=== PATIENT | male | born 1955 | race Caucasian/White ===

== ENCOUNTER → 2018-12-20 08:12 | Outpatient (CLI) | payer MEDICARE, OTHER, SELFPAY ==
--- NOTE | 2018-12-20 | DI.ECHO.S_ITS ---
[facility]---------+ [facility] +---------+ : : [address] : [place] : : : : [id number] : : : : Phone: [phone]+ Echocardiogram Report + + :Name: DESMOND SARAVIA Study Date: 12/20/2018 Height: 72 in : :[facility] Weight: 223 lb : : Gender: Male BSA: 2.2 m2 : :: 1955 Age: 63 yrs BP: 122/80 mmHg: :Reason For Study: Atrial Fibrillation : : Performed By: Zenia Carbajal : :Referring: AKANKSHA BENAVIDEZ : + + Interpretation Summary The patient was in atrial fibrillation with heart rates between 79-112 bpm during the exam. Left ventricular size is at the upper limits of normal. The ejection fraction is estimated to be 30-35%. There is moderate to severe global hypokinesis of the left ventricle. The right ventricle is grossly normal size. Right ventricular systolic function is mildly reduced. There is mild mitral regurgitation. Procedure: A two-dimensional transthoracic echocardiogram with color flow and Doppler was performed. The study quality was technically adequate. There is no prior echocardiogram noted for this patient. The patient was in atrial fibrillation with heart rates between 79-112 bpm during the exam. Left Ventricle: There is normal left ventricular wall thickness. Left ventricular size is at the upper limits of normal. There is no thrombus. Beat- to-beat variability due to atrial fibrillation. The ejection fraction is estimated to be 30-35%. There is moderate to severe global hypokinesis of the left ventricle. There is a mild dyssynchronous contraction pattern, consistent with a conduction abnormality. Diastolic function could not be accurately assessed due to atrial fibrillation. Right Ventricle: The right ventricle is grossly normal size. Right ventricular systolic function is mildly reduced. Atria: The left atrium is mildly dilated. Borderline right atrial enlargement. The interatrial septum is intact with no evidence for an atrial septal defect. Mitral Valve: There is mild mitral annular calcification. There is mild mitral regurgitation. Aortic Valve: The aortic valve is trileaflet. The aortic valve opens well. There is no aortic valve stenosis. No aortic regurgitation is present. Tricuspid Valve: The tricuspid valve is normal. There is trace tricuspid regurgitation. The right ventricular systolic pressure is estimated to be at least 22 mmHg based on an estimated right atrial pressure of 3 mm Hg. Pulmonic Valve: The pulmonic valve is not well visualized. There is a trace or physiologic amount of pulmonic regurgitation. Great Vessels: The aortic root is normal size. The ascending aorta is normal in size. The IVC is of normal diameter and collapses greater than 50% with a sniff. This suggests a low right atrial pressure of 3 mm Hg. Pericardium/ Pleura There is an anterior echo-free space consistent with a fat pad. There is no pericardial effusion. There is no pleural effusion. MMode/2D Measurements & Calculations LVIDd: 5.7 cm LVOT diam: 2.2 cm LVIDs: 4.2 cm Ao root diam: 3.4 cm FS: 25.8 % asc Aorta Diam: 3.4 cm IVSd: 0.93 cm LVPWd: 0.94 cm LV hargrove. diameter/BSA (cm/m^2): 2.6 LV sys. diameter/BSA (cm/m^2): 1.9 LA A2 area: 20.5 cm2 RA long axis: 5.1 cm LA A4 area: 20.5 cm2 RA area: 18.5 cm2 LA length (vol): 5.6 cm RA vol: 57.3 ml LA vol: 63.7 ml RA : 25.7 ml/m2 LA vol index: 28.5 ml/m2 TAPSE: 1.7 cm Doppler Measurements & Calculations Ao V2 max: 114.2 cm/sec LVOT Max Zain: 93.1 cm/sec Ao V2 mean: 81.5 cm/sec LV V1 max P.5 mmHg Ao max P.3 mmHg LV V1 VTI: 14.8 cm Ao mean P.9 mmHg CAITLIN(I,D): 2.8 cm2 Ao V2 VTI: 19.9 cm CAITLIN(V,D): 3.1 cm2 sev ratio: 0.74 CAITLIN indexed to BSA (cm^2/m^2): 1.3 TR max zain: 218.1 cm/sec SV(LVOT): 56.7 ml TR max P.0 mmHg PA V2 max: 71.5 cm/sec PA V2 mean: 51.0 cm/sec PA mean P.1 mmHg PA pr(Accel): 40.7 mmHg Reading Physician:POLLO
== END ==
PROVIDERS: PCP Internal Medicine; Visit Provider Physician Assistant
DX: I34.0 Nonrheumatic mitral (valve) insufficiency (principal); I48.91 Unspecified atrial fibrillation
CPT/HCPCS: 93306

== ENCOUNTER → 2018-12-28 10:07 | Outpatient (CLI) | payer MEDICARE, OTHER, SELFPAY ==
--- NOTE | 2018-12-28 | DI.RAD.S_ITS ---
PROCEDURE: XR KNEE LT 1TO2V INDICATIONS: KNEE PAIN TECHNIQUE: 2 views of the knee were acquired. COMPARISON: [facility], CR, XR KNEE STANDING BI, 12/28/2018, 10:23. [facility], CR, XR KNEE RT 1TO2V, 12/28/2018, 10:25. FINDINGS: Bones: Moderate tricompartment osteoarthritis in left knee is seen more prominent in the medial femorotibial compartment. No fractures or dislocations. No suspicious bony lesions. Soft tissues: Small joint effusion is noted. No suspicious soft tissue calcifications. IMPRESSION: Moderate left knee tricompartmental osteoarthritis more prominent in the medial femoral tibial compartment. Small joint effusion. Dictated by: Bijan Craig M.D. on 12/28/2018 at 11:24 Approved by: Bijan Craig M.D. on 12/28/2018 at 11:25
--- NOTE | 2018-12-28 | DI.RAD.S_ITS ---
PROCEDURE: XR KNEE RT 1TO2V INDICATIONS: KNEE PAIN TECHNIQUE: 2 views of the knee were acquired. COMPARISON: [facility], CR, XR KNEE STANDING BI, 12/28/2018, 10:23. FINDINGS: Bones: Moderate tricompartment osteoarthritis right knee is seen more prominent in lateral femoral tibial compartment. Soft tissues: No joint effusion. No suspicious soft tissue calcifications. IMPRESSION: Moderate tricompartment osteoarthritis and right knee more prominent in lateral femoral tibial compartment. Dictated by: Bijan Craig M.D. on 12/28/2018 at 11:17 Approved by: Bijan Craig M.D. on 12/28/2018 at 11:18
--- NOTE | 2018-12-28 | DI.RAD.S_ITS ---
PROCEDURE: XR KNEE STANDING BI INDICATIONS: KNEE PAIN TECHNIQUE: AP standing view of bilateral knees COMPARISON: [facility], , KNEE 3V RIGHT, 09/23/2007, 15:55. FINDINGS: Bones: AP standing view shows mild to moderate bilateral tricompartmental osteoarthritis more prominent in the medial femorotibial compartment of left knee and lateral femoral tibial compartment of right knee. Soft tissues: No knee joint effusions. No suspicious soft tissue calcification. IMPRESSION: Significant right lateral femoral tibial compartment and left medial femoral-tibial compartment joint space narrowing on AP standing view. Dictated by: Bijan Craig M.D. on 12/28/2018 at 11:16 Approved by: Bijan Craig M.D. on 12/28/2018 at 11:17
== END ==
PROVIDERS: PCP Internal Medicine; Visit Provider Internal Medicine
DX: M22.2X2 Patellofemoral disorders, left knee (principal); M25.562 Pain in left knee; M25.561 Pain in right knee; M17.0 Bilateral primary osteoarthritis of knee; M25.462 Effusion, left knee
CPT/HCPCS: 73560; 73565

== ENCOUNTER → 2019-01-03 10:59 | Outpatient (CLI) | payer MEDICARE, OTHER, SELFPAY ==
[2019-01-03 12:10] LABS: Hemoglobin A1C% w Est Avg Glu 5.3 % (4.0-6.0)
== END ==
PROVIDERS: PCP Internal Medicine; Visit Provider Internal Medicine
DX: R73.9 Hyperglycemia, unspecified (principal)
CPT/HCPCS: 36415; 83036

== ENCOUNTER → 2019-01-04 15:01 | Outpatient (CLI) | payer MEDICARE, OTHER, SELFPAY ==
--- NOTE | 2019-01-04 | DI.US.S_ITS ---
PROCEDURE: US PERIPH VENOUS LOW EXTREM LT INDICATIONS: LEFT LEG PAIN AND SWELLING TECHNIQUE: Real-time imaging, as well as color and pulse Doppler interrogation, were performed of the lower extremity deep veins from the inguinal ligament to the popliteal fossa. COMPARISON: None. FINDINGS: The deep veins are normally compressible, and free of intraluminal thrombus. Color and pulse Doppler demonstrate normal phasic intraluminal flow. There is normal augmentation response to distal compression maneuver. There is a large complex Barrera's cyst measuring 8.7 x 3.7 x 4.9 cm. IMPRESSION: 1. No evidence DVT in the left lower extremity. 2. Large Barrera cyst. Dictated by: Ronni Brody M.D. on 01/04/2019 at 16:52 Approved by: Ronni Brody M.D. on 01/04/2019 at 16:54
== END ==
PROVIDERS: PCP Internal Medicine; Visit Provider Internal Medicine
DX: M79.662 Pain in left lower leg (principal); M79.89 Other specified soft tissue disorders; M71.22 Synovial cyst of popliteal space [Baker], left knee
CPT/HCPCS: 93971

== ENCOUNTER → 2019-01-23 10:22 | Outpatient (CLI) | payer MEDICARE, OTHER, SELFPAY ==
[2019-01-23 11:05] LABS: Add Manual Diff / Slide Review NO; Basophils Absolute Auto 0 /uL (0-100); Basophils Percent Auto 0.6 % (0-2); Eosinophils Absolute Auto 100 /uL (0-450); Eosinophils Percent Auto 1.2 % (2-4); Hematocrit 47.3 % (41-53); Hemoglobin 16.1 g/dL (13.5-17.5); Lymphocytes Absolute Auto 1100 /uL (1100-4500); Lymphocytes Percent Auto 13.9 % (25-40); Mean Corpuscular HGB Conc 33.9 % (30-36); Mean Corpuscular Hemoglobin 32.3 PG (26-34); Mean Corpuscular Volume 95.3 fL (80-100); Monocytes Absolute Auto 600 /uL (0-900); Monocytes Percent Auto 7.4 % (3-14); Neutrophils Absolute Auto 6200 /uL (1500-7000); Neutrophils Percent Auto 76.9 % (50-75); Platelet Count 245 X10^3/uL (150-400); Red Blood Cell Count 4.97 X10^6/uL (4.5-5.9); Red Cell Distribution Width 13.7 % (11.6-14.8); White Blood Cell Count 8.1 X10^3/uL (4.5-11.0)
[2019-01-23 11:24] LABS: Blood Urea Nitrogen 21 mg/dL (9-20); Calcium 9.4 mg/dL (8.4-10.2); Carbon Dioxide 32 mmol/L (22-32); Chloride 98 mmol/L (98-107); Estimated Glomerular Filt Rate > 60.0 mL/min (>60); Glucose 116 mg/dL (80-110); HEMOLYSIS < 15 (0-50); Potassium 4.3 mmol/L (3.4-5.1); Sodium 139 mmol/L (137-145)
== END ==
PROVIDERS: PCP Internal Medicine; Visit Provider Internal Medicine Cardiovascular Disease
DX: I10 Essential (primary) hypertension (principal)
CPT/HCPCS: 36415; 80048; 85025

== ENCOUNTER → 2019-02-09 10:28 | Outpatient (CLI) | payer MEDICARE, OTHER, SELFPAY ==
[2019-02-09 12:17] LABS: Blood Urea Nitrogen 22 mg/dL (9-20); Calcium 9.4 mg/dL (8.4-10.2); Carbon Dioxide 31 mmol/L (22-32); Chloride 98 mmol/L (98-107); Estimated Glomerular Filt Rate > 60.0 mL/min (>60); Glucose 104 mg/dL (80-110); HEMOLYSIS < 15 (0-50); Sodium 139 mmol/L (137-145)
== END ==
PROVIDERS: PCP Internal Medicine; Visit Provider Internal Medicine Cardiovascular Disease
DX: I50.22 Chronic systolic (congestive) heart failure (principal)
CPT/HCPCS: 36415; 80048

== ENCOUNTER → 2019-05-01 08:52 | Outpatient (CLI) | payer MEDICARE, OTHER, SELFPAY ==
--- NOTE | 2019-05-01 | DI.ECHO.S_ITS ---
[facility] +---------+ [facility] +---------+ : : [address] [place] : : : : [id number] : : : : Phone: [phone] : : [phone]+ Echocardiogram Report + + :Name: DESMOND SARAVIA Study Date: 05/01/2019 Height: 72 in : :[facility] Weight: 224 lb : : Gender: Male BSA: 2.2 m2 : :: 1955 Age: 63 yrs BP: 118/90 mmHg: :Reason For Study: Atrial fibrillation : : Performed By: Sanam Cantu : :Referring: MARGE PEARL : + + Interpretation Summary 1) Normal left ventricular size with moderately reduced systolic function (EF 35-40%). 2) Mildly enlarged right ventricle with mildly reduced function. 3) No significant valvular abnormalities. 4) The right ventricular systolic pressure is estimated to be at least 42 mmHg based on an estimated right atrial pressure of 15 mm Hg. 5) Compared to the Echo done 12/20/2018, no significant changes are present. Procedure: A two-dimensional transthoracic echocardiogram with color flow and Doppler was performed. The study quality was technically adequate. Comparison is made with the echocardiogram of 12-20-18. The patient was in atrial fibrillation with heart rates between 79-94 bpm during the exam. Left Ventricle: The left ventricle is normal in size. Left ventricular wall thickness is at the upper limits of normal. The ejection fraction is estimated to be 35-40%. Right Ventricle: The right ventricle is mildly dilated. Right ventricular systolic function is mildly reduced. Atria: The left atrium is mildly dilated. Right atrial size is normal. The interatrial septum is intact with no evidence for an atrial septal defect. Mitral Valve: The mitral valve is grossly normal. There is mild mitral regurgitation. Aortic Valve: The aortic valve is trileaflet. The aortic valve opens well. There is no aortic valve stenosis. No aortic regurgitation is present. Tricuspid Valve: The tricuspid valve is normal in structure and function. There is a trace or physiologic amount of tricuspid regurgitation. The right ventricular systolic pressure is estimated to be at least 42 mmHg based on an estimated right atrial pressure of 15 mm Hg. Pulmonic Valve: The pulmonic valve is not well visualized. There is no pulmonic valvular regurgitation. Great Vessels: The aortic root is normal size. The dimensions of the ascending aorta are normal. The aortic arch could not be visualized. The IVC is dilated (diameter is greater than 2.1 cm) and it collapses less than 50% with a sniff. This suggests a high right atrial pressure of 15 mm Hg. Pericardium/ Pleura There is no pericardial effusion. There is no pleural effusion. MMode/2D Measurements & Calculations LVIDd: 5.4 cm LVOT diam: 3.4 cm LVIDs: 4.3 cm Ao root diam: 3.4 cm FS: 20.4 % Aortic Jxn: 3.0 cm IVSd: 1.1 cm asc Aorta Diam: 3.1 cm LVPWd: 1.1 cm LV hargrove. diameter/BSA (cm/m^2): 2.4 LV sys. diameter/BSA (cm/m^2): 1.9 LA dimension: 4.8 cm RA long axis: 4.8 cm LA A2 area: 23.2 cm2 RA area: 17.1 cm2 LA A4 area: 22.6 cm2 RA vol: 52.1 ml LA length (vol): 5.4 cm RA : 23.3 ml/m2 LA vol: 83.0 ml IVC diam: 2.3 cm LA vol index: 37.1 ml/m2 RVDd major: 5.0 cm RVD1 (basal): 4.3 cm RVD2 (mid): 3.4 cm Doppler Measurements & Calculations MV P1/2t: 59.0 msec TR max timothy: 259.3 cm/sec TR max P.9 mmHg PA V2 max: 68.8 cm/sec PA V2 mean: 54.7 cm/sec PA mean P.3 mmHg PA Accel Time: 0.13 sec MV V2 mean: 50.0 cm/sec MV P1/2t max timothy: 95.6 cm/sec MV mean P.4 mmHg MVA(P1/2t): 3.7 cm2 MV V2 VTI: 14.2 cm Reading Physician:01:17 PM
[2019-05-01 11:25] LABS: Blood Urea Nitrogen 17 mg/dL (9-20); Calcium 9.5 mg/dL (8.4-10.2); Carbon Dioxide 31 mmol/L (22-32); Chloride 103 mmol/L (98-107); Estimated Glomerular Filt Rate > 60.0 mL/min (>60); Glucose 105 mg/dL (80-110); HEMOLYSIS < 15 (0-50); Potassium 5.1 mmol/L (3.4-5.1); Sodium 142 mmol/L (137-145)
== END ==
PROVIDERS: PCP Internal Medicine; Visit Provider Internal Medicine Cardiovascular Disease
DX: I34.0 Nonrheumatic mitral (valve) insufficiency (principal); I48.1 Persistent atrial fibrillation; I42.9 Cardiomyopathy, unspecified
CPT/HCPCS: 36415; 80048; 93306

== ENCOUNTER → 2019-09-26 13:33 | Outpatient (CLI) | payer MEDICARE, OTHER, SELFPAY ==
--- NOTE | 2019-09-26 | DI.ECHO.S_ITS ---
[facility] +---------+ [facility] +---------+ : : [address] : [place] : : : : [id number] : : : : Phone: [phone] : [phone] +[phone]+ Echocardiogram Report + + :Name: DESMOND SARAVIA Study Date: 09/26/2019 Height: 72 in : :[facility] Weight: 224 lb : : Gender: Male BSA: 2.2 m2 : :: 1955 Age: 64 yrs BP: 118/88 mmHg: :Reason For Study: Chronic systolic heart failure : : Performed By: [facility] : :Referring: MARGE PEARL : + + Interpretation Summary 1) Normal left ventricular size with moderately reduced systolic function (EF 35-40%). There is significant beat to beat variation due to AF. 2) Mildly enlarged right ventricle with mildly reduced function. 3) No significant valvular abnormalities. 4) Atrial fibrillation with ventricular rates in the 90s-120s range present during the study. 5) Compared to the Echo done 05/01/2019,RVR is present with AF during the current study. Procedure: A two-dimensional transthoracic echocardiogram with color flow and Doppler was performed. The study quality was technically adequate. Prior echo performed on 05/01/19. Left Ventricle: The left ventricle is normal in size. There is normal left ventricular wall thickness. Left ventricular systolic function is moderately reduced. The ejection fraction is estimated to be 35-40%. Right Ventricle: The right ventricle is mildly dilated. The right ventricular systolic function is normal. Atria: The left atrium is mildly dilated. Right atrial size is normal. The interatrial septum is intact with no evidence for an atrial septal defect. Mitral Valve: The mitral valve leaflets appear mildly thickened, but open well. There is trace mitral regurgitation. Aortic Valve: The aortic valve is trileaflet. The aortic valve opens well. There is no aortic valve stenosis. No aortic regurgitation is present. Tricuspid Valve: The tricuspid valve is normal in structure and function. There is trace tricuspid regurgitation. Pulmonary artery pressures cannot be estimated because of the lack of a measurable TR jet velocity. Pulmonic Valve: The pulmonic valve is not well visualized. There is trace pulmonic regurgitation. Great Vessels: The aortic root is normal size. The ascending aorta could not be visualized. The pulmonary artery is normal size. The IVC is of normal diameter and collapses greater than 50% with a sniff. This suggests a low right atrial pressure of 3 mm Hg. Pericardium/ Pleura There is no pericardial effusion. There is no pleural effusion. MMode/2D Measurements & Calculations LVIDd: 5.5 cm LVOT diam: 2.0 cm LVIDs: 4.5 cm Ao root diam: 3.3 cm FS: 18.7 % EPSS: 1.9 cm IVSd: 1.1 cm LVPWd: 0.98 cm LV hargrove. diameter/BSA (cm/m^2): 2.5 LV sys. diameter/BSA (cm/m^2): 2.0 LA A2 area: 21.2 cm2 RA long axis: 5.0 cm LA A4 area: 24.2 cm2 RA area: 15.4 cm2 LA length (vol): 5.5 cm RA vol: 40.4 ml LA vol: 79.8 ml RA : 18.1 ml/m2 LA vol index: 35.7 ml/m2 TAPSE: 2.3 cm Doppler Measurements & Calculations MV E max zain: 89.8 cm/sec Med Peak E' Zain: 6.4 cm/sec E/E' med: 14.0 Lat Peak E' Zain: 6.5 cm/sec E/E' lat: 13.8 E/e' average: 13.9 Reading Physician:06:01 PM
[2019-09-26 15:53] LABS: Blood Urea Nitrogen 24 mg/dL (9-20); Calcium 9.7 mg/dL (8.4-10.2); Carbon Dioxide 28 mmol/L (22-32); Chloride 103 mmol/L (98-107); Estimated Glomerular Filt Rate > 60.0 mL/min (>60); Glucose 87 mg/dL (80-110); HEMOLYSIS < 15 (0-50); Sodium 140 mmol/L (137-145)
== END ==
PROVIDERS: PCP Internal Medicine; Visit Provider Internal Medicine Cardiovascular Disease
DX: I50.22 Chronic systolic (congestive) heart failure (principal); I48.91 Unspecified atrial fibrillation
CPT/HCPCS: 36415; 80048; 93306

== ENCOUNTER → 2019-09-28 13:37 | Outpatient (CLI) | payer MEDICARE, OTHER, SELFPAY ==
[2019-09-28 14:07] LABS: Hemoglobin A1C% w Est Avg Glu 5.3 % (4.0-6.0)
[2019-09-28 15:58] LABS: B Type Natriuretic Peptide 146 (<100)
== END ==
PROVIDERS: Family Provider Internal Medicine Cardiovascular Disease; PCP Internal Medicine; Visit Provider Internal Medicine
DX: I50.20 Unspecified systolic (congestive) heart failure (principal); R73.9 Hyperglycemia, unspecified
CPT/HCPCS: 36415; 83036; 83880

== ENCOUNTER → 2019-11-06 07:36 | Outpatient (CLI) | payer MEDICARE, OTHER, SELFPAY ==
--- NOTE | 2019-11-06 | DI.MRI.S_ITS ---
PROCEDURE: MR KNEE LT WO CON INDICATIONS: Pain in left knee TECHNIQUE: Noncontrast sagittal PD fast spin echo and T2 fast spin echo with fat saturation, sagittal 3-D FLASH with fat saturation; coronal T1 spin echo and PD fast spin echo with fat saturation, and axial PD fast spin echo with fat saturation through the knee. COMPARISON: [facility] [place], CR, XR KNEE ARTHRITIC SERIES BI, 11/01/2019, 8:16. FINDINGS: Image quality: Partially degraded by motion artifact. Menisci: There is linear and amorphous high signal intensity within the anterior horn, body, and posterior horn medial meniscus, demonstrating superior and inferior to the surface extension, indicating complex multifocal tearing. Amorphous and linear high signal intensity within the anterior horn, body, and posterior horn lateral meniscus is present, demonstrating superior and inferior articular surface extension, indicating complex multifocal tearing. Cruciate ligaments: The anterior and posterior cruciate ligaments appear intact. Medial structures: The medial collateral ligament appears intact. Visualized portions of the pes anserinus tendons appear normal. No abnormal bursal fluid. Lateral structures: The lateral collateral ligament, long and short heads of the biceps femoris tendon appear intact. The popliteus tendon appears normal. Iliotibial band appears normal. Anterior structures: The quadriceps and patellar tendons appear intact. Patellar alignment is normal. No femoral trochlear dysplasia or ventral trochlear prominence. No edema in the infrapatellar fat pad. Bones and cartilage: No bone marrow contusions or fractures. There is moderate tricompartmental periarticular osteophyte formation. Severe articular cartilage loss diffusely overlies the weightbearing aspects of the medial femoral condyle and medial tibial plateau. Moderate articular cartilage loss overlies the weightbearing aspects of the lateral femoral condyle and lateral tibial plateau. Severe superimposed articular cartilage loss overlies the mid weightbearing aspect of the lateral tibial plateau, as well as the posterior weightbearing aspect of the lateral femoral condyle. Moderate articular cartilage loss overlies the lateral patellar facet. Joint space: There is a moderate knee joint effusion and a moderate size Barrera's cyst. Normal appearing synovial plicae are incidentally noted. IMPRESSION: 1. Tricompartmental osteoarthritis with associated articular cartilage loss. 2. Knee joint effusion and Barrera's cyst. 3. Complex tearing of the medial and lateral menisci. Dictated by: Shweta Gagnon M.D. on 11/06/2019 at 11:41 Approved by: Shweta Gagnon M.D. on 11/06/2019 at 11:45
== END ==
PROVIDERS: Family Provider Internal Medicine Cardiovascular Disease; PCP Internal Medicine; Visit Provider Orthopaedic Surgery
DX: M25.561 Pain in right knee (principal); S83.272A Complex tear of lateral meniscus, current injury, left knee, initial encounter; S83.232A Complex tear of medial meniscus, current injury, left knee, initial encounter; M17.12 Unilateral primary osteoarthritis, left knee; M25.462 Effusion, left knee; M71.22 Synovial cyst of popliteal space [Baker], left knee
CPT/HCPCS: 73721

== ENCOUNTER → 2020-04-12 14:47 | Outpatient (CLI) | payer MEDICARE, OTHER, SELFPAY ==
[2020-04-12 17:12] LABS: BUN Creatinine Ratio 15.6 (6-22); Blood Urea Nitrogen 19 mg/dL (9-20); Calcium 9.8 mg/dL (8.4-10.2); Carbon Dioxide 30 mmol/L (22-32); Chloride 104 mmol/L (98-107); Estimated Glomerular Filt Rate 59.4 mL/min (>60); Glucose 103 mg/dL (80-110); HEMOLYSIS < 15 (0-50); Potassium 4.8 mmol/L (3.4-5.1); Sodium 138 mmol/L (137-145)
== END ==
PROVIDERS: Family Provider Internal Medicine Cardiovascular Disease; PCP Internal Medicine; Referring Provider Internal Medicine Cardiovascular Disease; Visit Provider Internal Medicine Cardiovascular Disease
DX: I48.19 Other persistent atrial fibrillation (principal)
CPT/HCPCS: 36415; 80048

== ENCOUNTER → 2020-04-29 19:19 | Outpatient (ROUT) | payer MEDICARE, OTHER, SELFPAY ==
[2020-04-29 19:42] LABS: Alanine Aminotransferase 27 IU/L (<50); Albumin 4.5 g/dL (3.5-5.0); Albumin Globulin Ratio 1.6 (1.0-2.8); Alkaline Phosphatase 73 U/L (38-126); Aspartate Aminotransferase 32 IU/L (17-59); BUN Creatinine Ratio 22.5 (6-22); Bilirubin Total 1.1 mg/dL (0.2-1.3); Blood Urea Nitrogen 20 mg/dL (9-20); Calcium 10.3 mg/dL (8.4-10.2); Carbon Dioxide 33 mmol/L (22-32); Chloride 101 mmol/L (98-107); Cholesterol 206 mg/dL (140-199); Estimated Glomerular Filt Rate > 60.0 mL/min (>60); Globulin 2.9 g/dL (1.7-4.1); Glucose 102 mg/dL (80-110); HDL Cholesterol 65 mg/dL (40-60); HEMOLYSIS 18 (0-50); LDL Cholesterol Calculated 121 mg/dL (<100); Potassium 5.3 mmol/L (3.4-5.1); Sodium 138 mmol/L (137-145); Total Protein 7.4 g/dL (6.3-8.2); Triglycerides 98 mg/dL (35-150)
[2020-04-29 19:43] LABS: Hemoglobin A1C% w Est Avg Glu 5.6 % (4.0-6.0)
[2020-04-29 19:47] LABS: Hematocrit 47.6 % (41-53); Hemoglobin 15.9 g/dL (13.5-17.5); Mean Corpuscular HGB Conc 33.5 % (30-36); Mean Corpuscular Hemoglobin 32.2 PG (26-34); Mean Corpuscular Volume 96.4 fL (80-100); Platelet Count 238 X10^3/uL (150-400); Red Blood Cell Count 4.94 X10^6/uL (4.5-5.9); Red Cell Distribution Width 13.6 % (11.6-14.8); White Blood Cell Count 7.6 X10^3/uL (4.5-11.0)
[2020-04-29 19:50] LABS: NT-proBNP (BNP-Adult 18+) 1130 pg/mL (<125)
[2020-04-29 19:52] LABS: Add Manual Diff / Slide Review YES
[2020-04-29 20:08] LABS: Neutrophils Absolute Manual 5320 /uL (3000-5900); RBC Morphology Normal Morphology; Total Cells Counted 100
== END ==
PROVIDERS: Family Provider Internal Medicine Cardiovascular Disease; PCP Internal Medicine; Visit Provider Internal Medicine
DX: R73.03 Prediabetes (principal); Z79.01 Long term (current) use of anticoagulants; I50.22 Chronic systolic (congestive) heart failure
CPT/HCPCS: 80053; 80061; 83036; 83880; 85025

== ENCOUNTER → 2020-05-06 07:38 | Outpatient (CLI) | payer MEDICARE, OTHER, SELFPAY ==
[2020-05-06 07:48] LABS: WBC Urine None Seen (0-5/HPF)
[2020-05-06 08:10] LABS: Add Manual Diff / Slide Review NO; Basophils Absolute Auto 100 /uL (0-100); Basophils Percent Auto 1.4 % (0-2); Eosinophils Absolute Auto 200 /uL (0-450); Eosinophils Percent Auto 2.7 % (2-4); Hematocrit 44.8 % (41-53); Hemoglobin 15.3 g/dL (13.5-17.5); Lymphocytes Absolute Auto 1400 /uL (1100-4500); Mean Corpuscular Hemoglobin 32.2 PG (26-34); Mean Corpuscular Volume 94.6 fL (80-100); Monocytes Absolute Auto 500 /uL (0-900); Monocytes Percent Auto 6.5 % (3-14); Neutrophils Absolute Auto 4900 /uL (1500-7000); Neutrophils Percent Auto 69.4 % (50-75); Platelet Count 217 X10^3/uL (150-400); Red Blood Cell Count 4.74 X10^6/uL (4.5-5.9); Red Cell Distribution Width 13.5 % (11.6-14.8)
[2020-05-06 08:12] LABS: Hemoglobin A1C% w Est Avg Glu 5.8 % (4.0-6.0)
[2020-05-06 08:36] LABS: BUN Creatinine Ratio 25.8 (6-22); Blood Urea Nitrogen 23 mg/dL (9-20); Calcium 9.3 mg/dL (8.4-10.2); Carbon Dioxide 28 mmol/L (22-32); Chloride 104 mmol/L (98-107); Estimated Glomerular Filt Rate > 60.0 mL/min (>60); Glucose 117 mg/dL (80-110); HEMOLYSIS < 15 (0-50); Potassium 4.6 mmol/L (3.4-5.1); Sodium 138 mmol/L (137-145)
[2020-05-06 10:18] LABS: Appearance Urine UA CLEAR; Bilirubin Urine UA NEGATIVE (NEGATIVE); Color Urine UA YELLOW; Glucose Urine UA NEGATIVE (Negative); Ketones Urine UA NEGATIVE (NEGATIVE); Leukocyte Esterase Urine UA NEGATIVE (NEGATIVE); Nitrite Urine UA NEGATIVE (Negative); Occult Blood Urine UA TRACE-LYSED (Negative); Protein Urine UA NEGATIVE (Negative); Specific Gravity Urine UA 1.025 (1.000-1.035); Urobilinogen Urine UA 0.2 E.U./dL (0.2)
[2020-05-06 11:18] LABS: Bacteria Urine Few (2-10); Culture Indicated Urine Cult Not Indicated; RBC Urine 0-1/HPF (0-5/HPF)
== END ==
PROVIDERS: Family Provider Internal Medicine Cardiovascular Disease; PCP Internal Medicine; Referring Provider Orthopaedic Surgery; Visit Provider Orthopaedic Surgery
DX: Z01.818 Encounter for other preprocedural examination (principal); Z01.812 Encounter for preprocedural laboratory examination; R73.9 Hyperglycemia, unspecified; N39.0 Urinary tract infection, site not specified
CPT/HCPCS: 36415; 80048; 81001; 83036; 85025; 93005; 93010

== ENCOUNTER → 2020-06-01 09:06 | Outpatient (CLI) | payer MEDICARE, OTHER, SELFPAY ==
[2020-06-02 17:44] LABS: COVID19 Sendout Not Detected (Not Detect)
== END ==
PROVIDERS: Family Provider Internal Medicine Cardiovascular Disease; PCP Internal Medicine; Visit Provider Physician Assistant
DX: Z11.59 Encounter for screening for other viral diseases (principal)
CPT/HCPCS: 87635

== ENCOUNTER 2020-06-04 06:11 | Day surgery (SDC) | payer MEDICARE, OTHER, SELFPAY ==
[2020-05-28 09:49] VITALS: BMI 31.6
[2020-06-04] VITALS (14 sets, daily range): BP systolic 113–145; BP diastolic 75–111; PULSE 63–114; RESP 12–18; TEMP 36.1–37.1; O2SAT 97–99; BMI 31.1
--- NOTE | 2020-06-04 06:35 | DI.RAD.S_ITS ---
PROCEDURE: XR KNEE LT 1TO2V INDICATIONS: TOTAL LEFT KNEE TECHNIQUE: 2 view(s) of the knee acquired. COMPARISON: [facility], [place], XR KNEE LT 1TO2V, 12/28/2018, 10:26. [facility], [place], XR KNEE RT 1TO2V, 12/28/2018, 10:25. FINDINGS: Bones: Patient is status post knee joint arthroplasty. Hardware components are in expected positions. Visualized bony structures are intact. Soft tissues: Overlying postoperative changes are noted. IMPRESSION: Satisfactory appearance of the left total knee arthroplasty. Dictated by: Deandre Flores M.D. on 06/04/2020 at 13:07 Approved by: Deandre Flores M.D. on 06/04/2020 at 13:09
[2020-06-04] MEDS: LACTATED RINGERS 1,000 ML 42 ML IV (06:58)
[2020-06-04] MEDS: VANCOMYCIN 1,000 MG/200 ML PIGGYBACK 200 MG IV (06:59)
[2020-06-04] MEDS: ACETAMINOPHEN 325 MG TABLET 975 MG PO (07:03)
[2020-06-04] MEDS: fentaNYL 100 MCG/2 ML INJ 50 MCG IV (07:41)
[2020-06-04] MEDS: MIDAZOLAM 2 MG/2 ML VIAL IV (07:41)
--- NOTE | 2020-06-04 07:55 | PM.PREOP ---
Pre-operative Note COVID-19 COVID-19 status: Negative Interval Note History & Physical reviewed/Exam performed by Physician: Yes Changes to H&P: No
--- NOTE | 2020-06-04 07:55 | SUR.PREOP ---
Block start time [0741] . Monitoring initiated and maintained throughout procedure. Oxygen and medications given per anesthesiologist instructions. Patient remained stable throughout procedure, no adverse reactions noted. Block end time [0747].
--- NOTE | 2020-06-04 07:55 | PM.OP.1 ---
Operative Date/Time/Diagnoses Date of procedure: 06/04/20 Time of procedure: 07:55 Pre-op diagnosis: left knee OA Post-op diagnosis: same Procedure & Clinicians Procedure: Left total knee arthroplasty Same procedure as scheduled: Yes Indications: The patient has had progressively worsening left knee pain with radiographic changes consistent with arthritis. Non-operative management has failed and the patient has requested total knee replacement. The risks, benefits and alternatives to surgery were discussed with the patient prior to proceeding. Risks discussed included, but were not limited to, failure to relieve pain, stiffness, infection, nerve damage, deep venous thrombosis, pulmonary embolism, stroke, coma, heart attack, permanent paralysis and , as well as the potential need for eventual revision of the prosthetic. Surgeon: Devora Crowe Feather Edger: Turner Wellington Anesthesia Type: General and Spinal Operative Notes Findings: Severe left knee osteoarthritis, good stability Closure Type: primary Specimen(s): none sent Prosthetic devices, grafts, tissues, transplants, or devices: [facility] and [facility] BCS 2 size 8 femur, size 7 tibia, +9 poly, 38 mm oval patella Estimated Blood Loss (mL): 250 Blood products transfused: none Tourniquet time (min): 82 Procedure in detail: The patient was seen in the pre-operative area, where the patient identified the left knee as the operative site and this was marked with my initials. The patient received pre-operative antibiotics, and was taken to the operating room and placed on the operative table in the supine position. After satisfactory anesthesia, a time piece repairer out was performed. The left leg was encircled with a tourniquet about the proximal thigh, and the leg was prepared from the toes to the tourniquet with ChloroPrep in the usual fashion and draped through sterile drapes. The leg was elevated and exsanguinated with Eschmark bandage and the tourniquet inflated to [250] mmHg pressure. The knee was approached through an approximately 18 cm incision centered over the patella and carried into the knee through a medial parapatellar arthrotomy. A portion of the medial and lateral meniscus was resected. Soft tissue was carefully mobilized around the patella the patella was measured with a caliper. Bone was resected from the patella and the patellar height was reconstituted with up an appropriate sized patellar component. A cover was then placed on the patella. A small amount of additional medial and lateral meniscus was resected. The visionare guide fit well to the distal femur. It looked like an appropriate distal femoral cut and the cut was made without difficulty. The rotation was assessed and the appropriate size femoral guide was placed on the distal femur and finishing cuts were made. There was no evidence of notching. The anterior, posterior and chamfer cuts were then made. The posterior osteophytes and soft tissues were then removed. The posterior capsule was injected with part of a mixture of 60 ml 0.25% Marcaine mixed with 20 ml Exparel for post operative pain control. The remainder of this mixture was injected into the capsule and subcutaneous tissues during cement curing. The tibia was prepared and the visionaire guide fit well to the distal tibia. The rotation was assessed. The patient was placed in extension residual medial and lateral meniscus as well as any residual bone was carefully resected. [No] additional tibia was resected. Hemostasis was achieved especially posteriorly. Additional local was injected into the posterior capsule. The extension gap was assessed and additional releases for gap balancing were performed as necessary. It was checked with the gap geographical historian. The femoral component was trial was placed and the notch was finished. Trial tibial and femoral components were then placed and the knee placed through a range of motion. Range of motion was [0-130], with good stability throughout the range. The trials were then removed, and the tibia was finished. The bone was prepared with pulsatile lavage, and dried with a sponge. Cement was applied and the final prosthetics placed. Excess cement was removed during and after cement curing. A brief Betadine soak was performed. After confirming there was no extruded cement posteriorly, the final tibial insert was placed. The knee was copiously irrigated and the tourniquet deflated. Hemostasis was obtained with the Bovie cautery. A drain was placed and brought out superolaterally. The capsule was closed with interrupted # 1 black braided suture. The subcutaneous layer was closed with barbed sutures, and the skin with a running 3-0 V-Lock suture and Surgical glue. An Aquacel Ag dressing was applied and the patient was taken to recovery having tolerated the procedure well. Complications: none Post-operative Condition: stable Disposition: Acute Care Plan for aftercare: The patient will be maintained on a standard total knee replacement protocol with weight bearing as tolerated. The patient will receive Eliquis and sequential compression devices for DVT prophylaxis. The patient will be discharged home when safe for the home environment.
[2020-06-04] MEDS: CEFAZOLIN 2 GM/100 ML FROZ.PIGGY IV ×2 (08:00→16:58)
--- NOTE | 2020-06-04 08:29 | SUR.OPER ---
Supine on padded OR bed. Pillow under head, arms secured on padded armboards <90 degree abduction. Safety belt across torso. Non-operative leg secured with tape over blanket over lower leg. Operative leg secured in [place]. Foam padded brace at thigh of operative leg.
[2020-06-04] MEDS: BUPIVACAINE 0.25% W/ EPI 30 ML VIAL 60 ML INJ (08:38)
[2020-06-04] MEDS: BUPIVACAINE LIPOSOME 266 MG/20 ML VIAL INJ (08:39)
[2020-06-04] MEDS: SODIUM CHLORIDE 0.9% 1,000 ML 125 ML IV (09:52)
[2020-06-04] MEDS: LACTATED RINGERS 1,000 ML 100 ML IV ×2 (11:38→21:39)
[2020-06-04] MEDS: OXYCODONE IR 5 MG TABLET PO (12:55)
--- NOTE | 2020-06-04 14:05 | PT.IIE ---
Current Diagnoses Unilateral primary osteoarthritis, left knee (06/04/20) Surgery Performed Operation Date: 06/04/20 07:45 Actual Procedures p Total Knee Arthroplasty(Left) - Devora Crowe MD Surgical History (Last Updated 05/28/20 @ 10:11 by Isidra Ashton, RN) History of vasectomy (Acute) Hx of tonsillectomy (Acute) Farber teeth removed (Acute) Medical History (Last Updated 05/28/20 @ 10:11 by Isidra Ashton RN) Afib (Acute) Chronic shortness of breath (Acute) Heart failure (Acute) History of cardioversion (Acute 02/27/19) HTN (hypertension) (Acute) Osteoarthritis (Acute) Overactive bladder (Acute) Pre-diabetes (Acute) Physical Therapy Inpatient Evaluation/Re-Eval M1 PT/OT-IP Prior Functional Status Start: 06/04/20 16:20 Freq: NEEDED Status: Active Protocol: Document 06/04/20 14:05 AB (Rec: 06/04/20 16:38 AB [email or web address]) Medical Review Prior Functional Status Medical History Reviewed Yes Communication able to make needs known Mobility and Gait pt stated that he is independent with all mobilities and ambualtion without AD Social History Household Members spouse Living Arrangements House Number of Floors (Floors) One Floor Number of Stairs To Enter/Railing? 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 M2 PT-IP Current Condition Start: 06/04/20 16:20 Freq: NEEDED Status: Active Protocol: Document 06/04/20 14:05 AB (Rec: 06/04/20 16:38 AB [email or web address]) Physical Therapy Current Condition Current Condition Evaluation Date 06/04/20 Treatment Diagnosis s/p L TKA; difficulty in walking Onset Date 06/04/20 Weight Bearing Status Weight Bearing Status Weight Bear as Tolerated Allowed Weight Bearing Amount (enter % LLE WBAT or #) (%) M3 PT-IP Subjective Start: 06/04/20 16:20 Freq: NEEDED Status: Active Protocol: Document 06/04/20 14:05 AB (Rec: 06/04/20 16:38 AB [email or web address]) Subjective Physical Therapy Visit Type Type Initial Evaluation Visit Start Time 14:05 Visit Stop Time 14:51 Total Visit Minutes 46 Number of RADIO OPERATOR Visits 0 Physical Therapy Visit Comments Patient Comments pt wanted to get out of bed and sit on chair Therapy Pain Assessment Pain When Pain Assessed At Rest Pain Present Pain Present Pain Reported Location Left Knee Intensity 6 Scale Used Numeric (0 - 10) Pain Management Techniques Apply Cold,Distraction,Re- positioning,Timing of Activity with Medications M4 PT-IP Mobility and Gait Start: 06/04/20 16:20 Freq: NEEDED Status: Active Protocol: Document 06/04/20 14:05 (Rec: 06/04/20 16:38 [id number]) PT-Bed Mobility Assessment Supine to Sit Supine to Sit Standby Assistance PT-Transfer Assessment Sit to and From Stand Sit to and from Stand Moderate Assistance,1 Person Assistance,Use of Upper Extremities Equipment Transfer Assistive Device Gait Belt,Front Wheeled Walker Orthotic/Prosthetic Devices or Brace: No Transfers Transfer Destination Chair Transfer Technique Stand Step Pivot Transfer Ability Level of Assist Moderate Assistance,2 Person Assistance,Use of Upper Extremities Comments Mobility Comments BP in supine 143/90. pt completed supine to sit SBA. pt was able to sit on EOB SBA. stated that he is feeling perfect. completed sit to stand mod A and cues. increase L knee flexion noted. pt started to ambulate ~ 2 ft using FWW max A and max cues, pt stated feeling nauseated. instructed pt to sit on EOB. BP checked: 124/ 76. pt does not want to lay back in bed and wants to sit up on chair. positioned chair next to pt. pt completed sit to stand again mod A and completed step transfer to chair using FWW max A and cues . pt c/o feeling cold and shivering and having cold sweats. positioned pt on chair and reclined. BP checked: 122/83. call light and table placed within reach. nurse aware of pt's symptoms . Gait Assessment Gait Gait Assistance Required: Maximum Assistance,1 Person Assist Distance (Feet) 2 Able to Maintain Weight Bearing Status Yes During Gait Assistive Devices Assistive Device Gait Belt,Front Wheeled Walker Orthotic/Prosthetic Devices or Brace: No Gait Deviations General Gait Pattern Antalgic,Decreased Stride Length,Decreased Feet Clearance,Step-to Gait Factors Limiting Gait Function Factors Limiting Gait Function Decreased Activity Tolerance, Decreased Strength,Difficulty Following Directions,Limited Range of Motion,Pain,Poor Balance,Poor Safety Awareness Comments Gait Comments (+) L knee buckling during transfers and ambulation. L knee has increase knee flexion and pt has difficulty with quads activation requiring cues and max A to stabilize LLE. PT-Balance Assessment Sitting Balance and Reactions Static Sitting Balance Ability Good Dynamic Sitting Balance Ability Good Standing Balance and Reactions Static Standing Balance Ability Fair Dynamic Standing Balance Ability Poor Device Used FWW M5 PT-IP Objective Assessments Start: 06/04/20 16:20 Freq: NEEDED Status: Active Protocol: Document 06/04/20 14:05 AB (Rec: 06/04/20 16:38 AB [email or web address]) Orientation Orientation/Cognition Level of Alertness Alert Orientation Name,Age,Birthday,Month,Date, Year,Day of Week,Place, Situation Language Function Ability No Deficits Noted Safety Awareness Decreased Safety Awareness Memory Description No Deficits Noted Gross Range of Motion Lower Extremity ROM Impairments L knee flexion PROM: up to 70 deg L knee extension lacking ~ 15 deg to neutral Strength Lower Extremity Strength Assessment Left Impaired Hip 4-/5 Knee 3+/5 Coordination Assessment Gross Coordination Gross Coordination WNL Sensation Assessment Comments Sensation Comments still c/o numbness on B buttocks Muscle Tone Muscle Tone WNL Yes M6 PT-IP Treatment Start: 06/04/20 16:20 Freq: NEEDED Status: Active Protocol: Document 06/04/20 14:05 AB (Rec: 06/04/20 16:38 AB [email or web address]) Physical Therapy Treatment Exercises Exercises Quad Sets,Heel Slides Education Education Provided Precautions,Weight Bearing Status,Post-Op Packet,Safety M7 PT-IP Assessment and Plan Start: 06/04/20 16:20 Freq: NEEDED Status: Active Protocol: Document 06/04/20 14:05 AB (Rec: 06/04/20 16:38 [email or web address]) PT Summary Assessment and Plan Potential Rehabilitation Potential Good Status of Condition at Evaluation Evolving Summary Impairments Pain,ROM,Strength,Balance, Coordination,Sensation,Tone, Cognition,Bed Mobility, Transfers,Gait,Activity Tolerance Assessment Summary pt s/p L TKA and just had surgery this morning. pt was unable to tolerate much activity with c/o nausea during standing. Pt with (+) L knee buckling during standing/ambulation and requires max A with transfers. d/c plan depending on progress. will continue to assess mobility. pt stated that his spouse will be able to assist him at home. will conduct caregiver training when appropriate. Goals Bed Mobility Goal Independent Transfer Goal Standby Assistance,Front Wheeled Walker Gait Goal Standby Assistance,Front Wheel Walker Gait Distance 200 Days to Meet Goals 5 Frequency of Treatment Frequency Of Treatment Twice a Day Treatment Plan Physical Therapy Treatment Plan Bed Mobility Training,Transfer Training,Gait Training, Therapeutic Exercise,Balance Retraining,Post Op Education, Discharge Planning,Hot or Cold Pack,Neuromuscular Re-ed, Coordination Retraining,Manual Therapy Recommendations To Nursing Amount of Assist Needed 2 Person Assist Discharge Recommendations PT Discharge Recommendations Home with Assistance,SNF Rehab ,Outpatient PT Other Discharge Recommendations depending on progress: SNF vs home with assistance and outpt PT Transportation Needs at Discharge Private Vehicle,Wheelchair/ Cabulance
--- NOTE | 2020-06-04 14:19 | PC.NURSE ---
PATIENT ARRIVED W/ CLAMPED HV, ALERT AND ORIENTED, DENIED PAIN. CMS INTACT, DRSG CDI. HR IRREG W/ HX AFIB. LUNGS CLEAR AND RA. PATIENT BEGAN HAVING INCREASED PAIN UP TO 5/10, GIVEN OXYCODONE 5MG. PAIN CLIMBING TO 7/10. DR GARCIA IN TO SEE PATIENT, NOTIFIED OF ABOVE, RECEIVED ORDERS FOR DILAUDID, DR GARCIA VISUALIZED HV OUTPUT. INSTRUCTED TO RECLAMP FOR 2 HRS. WILL BE DUE TO UNCLAMP AT 1615.
[2020-06-04] MEDS: ACETAMINOPHEN 325 MG TABLET 650 MG PO ×2 (14:27→20:44)
[2020-06-04] MEDS: HYDROMORPHONE 2 MG TABLET PO (14:27)
[2020-06-04] MEDS: DOCUSATE 100 MG CAPSULE PO (20:43)
[2020-06-04] MEDS: ASPIRIN EC 81 MG TABLET PO (20:44)
[2020-06-05] MEDS: CEFAZOLIN 2 GM/100 ML FROZ.PIGGY IV (00:22)
[2020-06-05 00:41] VITALS: BP 152/92; PULSE 101; RESP 20; TEMP 36.8; O2SAT 98
[2020-06-05] MEDS: OXYCODONE IR 5 MG TABLET PO ×2 (04:23→08:33)
[2020-06-05 04:55] VITALS: BP 148/90; PULSE 106; RESP 20; TEMP 36.4; O2SAT 99
[2020-06-05 05:29] LABS: Hematocrit 38.3 % (41-53); Hemoglobin 13.2 g/dL (13.5-17.5)
--- NOTE | 2020-06-05 06:25 | PC.NURSE ---
Senior Technical Architect Note-Patient slept in chair overnight per his request. Ambulates into BR and around room with walker and SBA. Medicated with 5mg oxycodone x1 and using ice packs for pain control. CMS intact, ruslan wrap CDI, hemavac put out 200ml.
--- NOTE | 2020-06-05 07:45 | PM.PN.1 ---
Subjective Subjective Date Patient Seen: 06/05/20 Time Patient Seen: 07:45 Interval history: Gregg notes that he is doing well he has been up ambulating in his room and urinating. His pain is controlled with oral pain medications. He denies any chest pain or other cardiac symptoms. Exam Vital Signs (past 8 hours): - 06/05/20 00:41 06/05/20 04:55 Temperature 98.2 F 97.6 F Pulse Rate 101 H 106 H Respiratory Rate 20 20 Blood Pressure 152/92 H 148/90 H Pulse Oximetry 98 99 Oxygen Delivery Method Room Air Oxygen Flow Rate 0 Narrative Exam Narrative: He is resting in a chair is able to do straight leg raises dressing is dry calf to soft bilaterally has mild pain with gentle range of motion. Objective Labs Result Diagrams: 06/05/20 04:51 Labs: Laboratory Results - last 24 hr 06/05/20 04:51 Hgb 13.2 L Hct 38.3 L Assessment & Plan Assessment & Plan narrative: Doing well status post a left total knee arthroplasty. The plan is to discharge to home today walking as tolerated. Outpatient physical therapy in follow-up in about 10 days or so.
[2020-06-05] MEDS: DOCUSATE 100 MG CAPSULE PO (08:33)
[2020-06-05] MEDS: SPIRONOLACTONE 25 MG TABLET 12.5 MG PO (08:33)
[2020-06-05] MEDS: ACETAMINOPHEN 325 MG TABLET 650 MG PO (08:33)
[2020-06-05] MEDS: ASPIRIN EC 81 MG TABLET PO (08:33)
[2020-06-05] MEDS: METOPROLOL ER 50 MG TABLET PO (08:36)
[2020-06-05] MEDS: LOSARTAN 25 MG TABLET 12.5 MG PO (08:37)
[2020-06-05 08:48] VITALS: BP 151/79; PULSE 100; RESP 18; TEMP 36.9; O2SAT 99
[2020-06-05 10:00] VITALS: PULSE 89
--- NOTE | 2020-06-05 10:00 | PC.NURSE ---
pt assessed first thing this am and he reported pain of left knee as 3-4?10 medicated with oxycodone f5mg and scheduled Tylenol- hemnovac removed and ruslan wrap as well- aquacell dressing intact with few areas of strike thru bloody drainage- up with sba - voiding in bathroom and planning for discharge later this date
--- NOTE | 2020-06-05 11:11 | PT.IPTN ---
Current Diagnoses Unilateral primary osteoarthritis, left knee (06/04/20) Surgery Performed Operation Date: 06/04/20 07:45 Actual Procedures p Total Knee Arthroplasty(Left) - Devora Crowe MD Physical Therapy Treatment Note M2 PT-IP Current Condition Start: 06/04/20 16:20 Freq: NEEDED Status: Active Protocol: Document 06/04/20 14:05 AB (Rec: 06/04/20 16:38 AB [email or web address]) Physical Therapy Current Condition Current Condition Evaluation Date 06/04/20 Treatment Diagnosis s/p L TKA; difficulty in walking Onset Date 06/04/20 Weight Bearing Status Weight Bearing Status Weight Bear as Tolerated Allowed Weight Bearing Amount (enter % LLE WBAT or #) (%) M3 PT-IP Subjective Start: 06/04/20 16:20 Freq: NEEDED Status: Active Protocol: Document 06/05/20 10:33 SP (Rec: 06/05/20 14:12 SP [email or web address]) Subjective Physical Therapy Visit Type Type Treatment Note Visit Start Time 10:33 Visit Stop Time 11:11 Total Visit Minutes 38 Notes CATTYMAN student Jessi attended, provided assistance and education during tx. Number of CATTYMAN Visits 1 Physical Therapy Visit Comments Patient Comments Pt willing to participate with therapy. Patient Goals Turn home with spouse. Therapy Pain Assessment Pain When Pain Assessed During Mobility Pain Present Pain Present Pain Reported Location Left Knee Intensity 2 Scale Used Numeric (0 - 10) Pain Management Techniques Apply Cold,Re-positioning, Timing of Activity with Medications M4 PT-IP Mobility and Gait Start: 06/04/20 16:20 Freq: NEEDED Status: Active Protocol: Document 06/05/20 10:33 SP (Rec: 06/05/20 14:12 SP [email or web address]) PT-Bed Mobility Assessment Supine to Sit Supine to Sit Standby Assistance Sit to Supine Sit to Supine Standby Assistance Scooting Scooting to Edge of Bed Standby Assistance PT-Transfer Assessment Sit to and From Stand Sit to and from Stand Contact Guard Assistance,Use of Upper Extremities Equipment Transfer Assistive Device Gait Belt,Front Wheeled Walker Transfers Transfer Destination Bed,Chair Transfer Technique Stand Step Pivot Transfer Ability Level of Assist Contact Guard Assistance,Use of Upper Extremities Comments Mobility Comments CATTYMAN entered room approx [id number] to discuss treatment time when saw patient catch self using BUE on sink counter in standing x2 R side toward sink before could get to him running in to assist, FWW approx 4 inches away positioned in front 90 deg to counter, once patient stabilized self and CGA from CATTYMAN proceeded to apply tooth paste on tooth brush unsteady on feet needing CGA- Min A for maintaining balance. CATTYMAN took tooth brush/paste and place on counter while providing education to patient recommended assist of 1 person to decrease risk for falls while getting around the room and when standing at sink FWW forward positioning and body inside to allow for UE support on FWW as needed for balance, pt agreed. CATTYMAN provided CGA to patient step pivot and ambulated back to chair approx 5 ft with cuing for proper hand placement reaching back with slow descent. Pt was reclined sitting in chair. CATTYMAN student acquired a chair alarm, armed, Call light and all needs ( includign tooth brush/paste/basin/cup water) in reach before left. CATTYMAN discussed incident and all that assisted patient with to nurse and TRUCK MANAGER for safety awareness and provide checks. When returned 1033 assessed vitals: BP reclined sitting 85 /50 HR 107, upright sitting at EO chair 137/64 HR 103, standing 138/99 HR 116 with notification TRUCK MANAGER to pass onto nurse gradual elevation in diastolic awareness, non symptomatic feedback from patient. Instructed post op exercises in reclined sitting in chair pre mobility: quad set slow 10 sec hold and quick contractions for knee extension during WB awareness, Heel slide, ankle pump, education of CP posterior L knee for need with pain swelling but not all time to allow knee extension ROM with verbal confirmation understanding. Sit to stand from chair using BUE on chair arms CGA usign FWW. Pt demonstrated NWB onto LLE coming to standing then with cuing awareness of WB into LLE alloweed with wt shifting and quad facilitation pre gait. Pt step pivot transfer chair to R side of bed cued safety reach back for self slow descent CGA and reposioning LLE out in front. sitting<> supine SBA with no UE assist to LLE needed. While in suping complete post op ex discussed when in chair with use of gait belt for heel slide assist self performance approx 45-60 deg knee flexion tolerated. Once patient sitting at EOB mobility SBA, sit to stand with cuing for pushing from bed then onto FWW for safety with verbal understanding CGA required for safety with balance, improvement WB through LLE coming to standing. Pt was able to walk further into hallway approx 150 ft with cuing for L knee flexion during toe off and swing through, then quad facilitation knee extension prep heel strike onto slow eccentric DF descent onot toe to decrease wt shift of to R and hip hike on L and small step pivoting BLE during turn with improvement demonstrated in quality as distance progressed. Pt wanting to sit in chair when returned to room , continued cuing for reaching back for chair arms with slow descent insteady of WB on FWW with good carryover with cuing. Pt was reclined in chair with chair alarm armed and all needs in reach prior to leaving. CATTYMAN discussed with patient concerns of safety awareness during tx and wanting to complete caregiver training with him and prior to DC and agreeable, provided spouse cell to call and set up 2 pm CGT. CATTYMAN called spouse, discussed therapy progress in mobiltiy and safety concerns, willing to assist with needs but stated is resistant at times for help, agreed to attend at 2 pm during tx. Recommending home with /7 assist of . Will continue to assess during pm tx, recommending outpt therapy to progress ROM, strength to increased functional mobility. Gait Assessment Gait Gait Assistance Required: Contact Guard Assist,1 Person Assist Distance (Feet) 150 Able to Maintain Weight Bearing Status Yes During Gait Assistive Devices Assistive Device Gait Belt,Front Wheeled Walker Orthotic/Prosthetic Devices or Brace: No Gait Deviations General Gait Pattern Antalgic,Decreased Stride Length,Decreased Feet Clearance,Lateral Trunk Lean, Step-to Gait Factors Limiting Gait Function Factors Limiting Gait Function Decreased Activity Tolerance, Decreased Strength,Limited Range of Motion,Pain,Poor Balance,Poor Safety Awareness Comments Gait Comments Unsteady on LLE with lateral trunk lean R and hip hike on L during swing through, cued quad facilitation CGA with FWW . See mobility comments for more details. Stair Climbing Assessment Comments Stair Climbing Comments Not needed, no stairs at home. PT-Balance Assessment Sitting Balance and Reactions Static Sitting Balance Ability Good Dynamic Sitting Balance Ability Good Standing Balance and Reactions Static Standing Balance Ability Poor Dynamic Standing Balance Ability Poor Device Used FWW M5 PT-IP Objective Assessments Start: 06/04/20 16:20 Freq: NEEDED Status: Active Protocol: Document 06/04/20 14:05 AB (Rec: 06/04/20 16:38 AB [email or web address]) Orientation Orientation/Cognition Level of Alertness Alert Orientation Name,Age,Birthday,Month,Date, Year,Day of Week,Place, Situation Language Function Ability No Deficits Noted Safety Awareness Decreased Safety Awareness Memory Description No Deficits Noted Gross Range of Motion Lower Extremity ROM Impairments L knee flexion PROM: up to 70 deg L knee extension lacking ~ 15 deg to neutral Strength Lower Extremity Strength Assessment Left Impaired Hip 4-/5 Knee 3+/5 Coordination Assessment Gross Coordination Gross Coordination WNL Sensation Assessment Comments Sensation Comments still c/o numbness on B buttocks Muscle Tone Muscle Tone WNL Yes M6 PT-IP Treatment Start: 06/04/20 16:20 Freq: NEEDED Status: Active Protocol: Document 06/05/20 10:33 SP (Rec: 06/05/20 14:12 SP [email or web address]) Physical Therapy Treatment Exercises Exercises Ankle Pumps,Quad Sets,Heel Slides,Straight Leg Raises, Seated Knee Flexion/Extension Education Education Provided Precautions,Weight Bearing Status,Post-Op Packet,Safety M7 PT-IP Assessment and Plan Start: 06/04/20 16:20 Freq: NEEDED Status: Active Protocol: Document 06/05/20 10:33 SP (Rec: 06/05/20 14:12 SP [email or web address]) PT Summary Assessment and Plan Potential Rehabilitation Potential Good Status of Condition at Evaluation Evolving Summary Impairments Pain,ROM,Strength,Balance, Coordination,Sensation,Tone, Cognition,Bed Mobility, Transfers,Gait,Activity Tolerance Assessment Summary See royal comments. CGA- Min A during gait usign FWW. sit <> stand CGA wtih cuing for proper hand placement, SBA during supine<> sitting. LOB incident see comments for details pre PT tx. d/c plan home with to assist 17/05 for safety with balance during WB, will continue to assess mobility during CGT at 2 pm. Goals Bed Mobility Goal Independent Transfer Goal Standby Assistance,Front Wheeled Walker Gait Goal Standby Assistance,Front Wheel Walker Gait Distance 200 Days to Meet Goals 5 Frequency of Treatment Frequency Of Treatment Twice a Day Treatment Plan Physical Therapy Treatment Plan Bed Mobility Training,Transfer Training,Gait Training, Therapeutic Exercise,Balance Retraining,Post Op Education, Discharge Planning,Hot or Cold Pack,Neuromuscular Re-ed, Coordination Retraining,Manual Therapy Recommendations To Nursing Amount of Assist Needed 1 Person Assist Discharge Recommendations PT Discharge Recommendations Home with Assistance,Home with 17/05 Assist,Outpatient PT Transportation Needs at Discharge Private Vehicle,Wheelchair/ Cabulance
[2020-06-05 12:00] VITALS: BP 126/75; PULSE 94; RESP 18; TEMP 36.6; O2SAT 99
--- NOTE | 2020-06-05 14:36 | PT.IPTN ---
Current Diagnoses Unilateral primary osteoarthritis, left knee (06/04/20) Surgery Performed Operation Date: 06/04/20 07:45 Actual Procedures p Total Knee Arthroplasty(Left) - Devora Crowe MD Physical Therapy Treatment Note M2 PT-IP Current Condition Start: 06/04/20 16:20 Freq: NEEDED Status: Active Protocol: Document 06/04/20 14:05 AB (Rec: 06/04/20 16:38 AB [email or web address]) Physical Therapy Current Condition Current Condition Evaluation Date 06/04/20 Treatment Diagnosis s/p L TKA; difficulty in walking Onset Date 06/04/20 Weight Bearing Status Weight Bearing Status Weight Bear as Tolerated Allowed Weight Bearing Amount (enter % LLE WBAT or #) (%) M3 PT-IP Subjective Start: 06/04/20 16:20 Freq: NEEDED Status: Active Protocol: Document 06/05/20 10:33 SP (Rec: 06/05/20 14:12 SP [email or web address]) Subjective Physical Therapy Visit Type Type Treatment Note Visit Start Time 10:33 Visit Stop Time 11:11 Total Visit Minutes 38 Notes GATE TENDER student Jessi attended, provided assistance and education during tx. Number of GATE TENDER Visits 1 Physical Therapy Visit Comments Patient Comments Pt willing to participate with therapy. Patient Goals Turn home with spouse. Therapy Pain Assessment Pain When Pain Assessed During Mobility Pain Present Pain Present Pain Reported Location Left Knee Intensity 2 Scale Used Numeric (0 - 10) Pain Management Techniques Apply Cold,Re-positioning, Timing of Activity with Medications M4 PT-IP Mobility and Gait Start: 06/04/20 16:20 Freq: NEEDED Status: Active Protocol: Document 06/05/20 10:33 SP (Rec: 06/05/20 14:12 SP [email or web address]) PT-Bed Mobility Assessment Supine to Sit Supine to Sit Standby Assistance Sit to Supine Sit to Supine Standby Assistance Scooting Scooting to Edge of Bed Standby Assistance PT-Transfer Assessment Sit to and From Stand Sit to and from Stand Contact Guard Assistance,Use of Upper Extremities Equipment Transfer Assistive Device Gait Belt,Front Wheeled Walker Transfers Transfer Destination Bed,Chair Transfer Technique Stand Step Pivot Transfer Ability Level of Assist Contact Guard Assistance,Use of Upper Extremities Comments Mobility Comments GATE TENDER entered room approx [id number] to discuss treatment time when saw patient catch self using BUE on sink counter in standing x2 R side toward sink before could get to him running in to assist, FWW approx 4 inches away positioned in front 90 deg to counter, once patient stabilized self and CGA from GATE TENDER proceeded to apply tooth paste on tooth brush unsteady on feet needing CGA- Min A for maintaining balance. GATE TENDER took tooth brush/paste and place on counter while providing education to patient recommended assist of 1 person to decrease risk for falls while getting around the room and when standing at sink FWW forward positioning and body inside to allow for UE support on FWW as needed for balance, pt agreed. GATE TENDER provided CGA to patient step pivot and ambulated back to chair approx 5 ft with cuing for proper hand placement reaching back with slow descent. Pt was reclined sitting in chair. GATE TENDER student acquired a chair alarm, armed, Call light and all needs ( includign tooth brush/paste/basin/cup water) in reach before left. GATE TENDER discussed incident and all that assisted patient with to nurse and MANAGER TRAINING for safety awareness and provide checks. When returned 1033 assessed vitals: BP reclined sitting 85 /50 HR 107, upright sitting at EO chair 137/64 HR 103, standing 138/99 HR 116 with notification MANAGER TRAINING to pass onto nurse gradual elevation in diastolic awareness, non symptomatic feedback from patient. Instructed post op exercises in reclined sitting in chair pre mobility: quad set slow 10 sec hold and quick contractions for knee extension during WB awareness, Heel slide, ankle pump, education of CP posterior L knee for need with pain swelling but not all time to allow knee extension ROM with verbal confirmation understanding. Sit to stand from chair using BUE on chair arms CGA usign FWW. Pt demonstrated NWB onto LLE coming to standing then with cuing awareness of WB into LLE alloweed with wt shifting and quad facilitation pre gait. Pt step pivot transfer chair to R side of bed cued safety reach back for self slow descent CGA and reposioning LLE out in front. sitting<> supine SBA with no UE assist to LLE needed. While in suping complete post op ex discussed when in chair with use of gait belt for heel slide assist self performance approx 45-60 deg knee flexion tolerated. Once patient sitting at EOB mobility SBA, sit to stand with cuing for pushing from bed then onto FWW for safety with verbal understanding CGA required for safety with balance, improvement WB through LLE coming to standing. Pt was able to walk further into hallway approx 150 ft with cuing for L knee flexion during toe off and swing through, then quad facilitation knee extension prep heel strike onto slow eccentric DF descent onot toe to decrease wt shift of to R and hip hike on L and small step pivoting BLE during turn with improvement demonstrated in quality as distance progressed. Pt wanting to sit in chair when returned to room , continued cuing for reaching back for chair arms with slow descent insteady of WB on FWW with good carryover with cuing. Pt was reclined in chair with chair alarm armed and all needs in reach prior to leaving. GATE TENDER discussed with patient concerns of safety awareness during tx and wanting to complete caregiver training with him and prior to DC and agreeable, provided spouse cell to call and set up 2 pm CGT. GATE TENDER called spouse, discussed therapy progress in mobiltiy and safety concerns, willing to assist with needs but stated is resistant at times for help, agreed to attend at 2 pm during tx. Recommending home with /7 assist of . Will continue to assess during pm tx, recommending outpt therapy to progress ROM, strength to increased functional mobility. Gait Assessment Gait Gait Assistance Required: Contact Guard Assist,1 Person Assist Distance (Feet) 150 Able to Maintain Weight Bearing Status Yes During Gait Assistive Devices Assistive Device Gait Belt,Front Wheeled Walker Orthotic/Prosthetic Devices or Brace: No Gait Deviations General Gait Pattern Antalgic,Decreased Stride Length,Decreased Feet Clearance,Lateral Trunk Lean, Step-to Gait Factors Limiting Gait Function Factors Limiting Gait Function Decreased Activity Tolerance, Decreased Strength,Limited Range of Motion,Pain,Poor Balance,Poor Safety Awareness Comments Gait Comments Unsteady on LLE with lateral trunk lean R and hip hike on L during swing through, cued quad facilitation CGA with FWW . See mobility comments for more details. Stair Climbing Assessment Comments Stair Climbing Comments Not needed, no stairs at home. PT-Balance Assessment Sitting Balance and Reactions Static Sitting Balance Ability Good Dynamic Sitting Balance Ability Good Standing Balance and Reactions Static Standing Balance Ability Poor Dynamic Standing Balance Ability Poor Device Used FWW M5 PT-IP Objective Assessments Start: 06/04/20 16:20 Freq: NEEDED Status: Active Protocol: Document 06/04/20 14:05 AB (Rec: 06/04/20 16:38 AB [email or web address]) Orientation Orientation/Cognition Level of Alertness Alert Orientation Name,Age,Birthday,Month,Date, Year,Day of Week,Place, Situation Language Function Ability No Deficits Noted Safety Awareness Decreased Safety Awareness Memory Description No Deficits Noted Gross Range of Motion Lower Extremity ROM Impairments L knee flexion PROM: up to 70 deg L knee extension lacking ~ 15 deg to neutral Strength Lower Extremity Strength Assessment Left Impaired Hip 4-/5 Knee 3+/5 Coordination Assessment Gross Coordination Gross Coordination WNL Sensation Assessment Comments Sensation Comments still c/o numbness on B buttocks Muscle Tone Muscle Tone WNL Yes M6 PT-IP Treatment Start: 06/04/20 16:20 Freq: NEEDED Status: Active Protocol: Document 06/05/20 10:33 SP (Rec: 06/05/20 14:12 SP [email or web address]) Physical Therapy Treatment Exercises Exercises Ankle Pumps,Quad Sets,Heel Slides,Straight Leg Raises, Seated Knee Flexion/Extension Education Education Provided Precautions,Weight Bearing Status,Post-Op Packet,Safety M7 PT-IP Assessment and Plan Start: 06/04/20 16:20 Freq: NEEDED Status: Active Protocol: Document 06/05/20 10:33 SP (Rec: 06/05/20 14:12 SP [email or web address]) PT Summary Assessment and Plan Potential Rehabilitation Potential Good Status of Condition at Evaluation Evolving Summary Impairments Pain,ROM,Strength,Balance, Coordination,Sensation,Tone, Cognition,Bed Mobility, Transfers,Gait,Activity Tolerance Assessment Summary See royal comments. CGA- Min A during gait usign FWW. sit <> stand CGA wtih cuing for proper hand placement, SBA during supine<> sitting. LOB incident see comments for details pre PT tx. d/c plan home with to assist 17/05 for safety with balance during WB, will continue to assess mobility during CGT at 2 pm. Goals Bed Mobility Goal Independent Transfer Goal Standby Assistance,Front Wheeled Walker Gait Goal Standby Assistance,Front Wheel Walker Gait Distance 200 Days to Meet Goals 5 Frequency of Treatment Frequency Of Treatment Twice a Day Treatment Plan Physical Therapy Treatment Plan Bed Mobility Training,Transfer Training,Gait Training, Therapeutic Exercise,Balance Retraining,Post Op Education, Discharge Planning,Hot or Cold Pack,Neuromuscular Re-ed, Coordination Retraining,Manual Therapy Recommendations To Nursing Amount of Assist Needed 1 Person Assist Discharge Recommendations PT Discharge Recommendations Home with Assistance,Home with 17/05 Assist,Outpatient PT Transportation Needs at Discharge Private Vehicle,Wheelchair/ Cabulance
--- NOTE | 2020-06-05 14:50 | CM.DPC ---
DCP Discharge Home Patient is a 65 year old male who was admitted on 06/04/20 for Left Uni Knee Surgery. Pt has [facility] and [facility] for insurance and his PCP is Dr. Joslyn Leno. EMR was reviewed. Per Ortho MD, pt tolerated procedure well and pain seems better controlled and voiding and ambulated some with PT yesterday and discharge pending further PT. 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 Per [facility] today, pt made progress but still a fall risk but was able to participate in therapy today and recommending safe d/c home with outpt PT. SW attempted to meet with pt after PT session but pt had already been taken out to spouse vehicle for home and per RN no concerns with d/c home today. Plan: Patient just discharged home via spouse POV and outpt PT and no SW needs at this time. Maggie Olivo MSW
== END 2020-06-05 14:40 | disposition home or self-care (01) ==
LOC: OR 06:18 → AC 09:48
PROVIDERS: Family Provider Internal Medicine Cardiovascular Disease; PCP Internal Medicine; Referring Provider Internal Medicine; Visit Provider Orthopaedic Surgery
PROC: 0SRD0JZ Replacement of Left Knee Joint with Synthetic Substitute, Open Approach (ICD-10-PCS; CPT 27447; principal; 2020-06-04 07:45)
DX: M17.12 Unilateral primary osteoarthritis, left knee (principal); I10 Essential (primary) hypertension; I48.91 Unspecified atrial fibrillation; I42.9 Cardiomyopathy, unspecified; Z87.891 Personal history of nicotine dependence
CPT/HCPCS: 27447; 36415; 73560; 85014; 85018; 97110; 97116; 97162; 97530; C1776; C9290; J0690; J2250; J2704; J3010

== ENCOUNTER → 2020-10-09 08:37 | Outpatient (CLI) | payer MEDICARE, OTHER, SELFPAY ==
[2020-06-04 11:43] VITALS: BMI 31.1
--- NOTE | 2020-10-09 09:47 | DI.ECHO.S_ITS ---
Echocardiogram Report + + :Name: DESMOND SARAVIA Study Date: 10/09/2020 Height: 72 in : :[facility] Weight: 233 lb : : Gender: Male BSA: 2.3 m2 : :: 1955 Age: 65 yrs BP: 130/95 mmHg: :Reason For Study: CARDIOMYOPATHY : :Ordering Physician: REBECCA, : :MARGE Performed By: Ingrid Fleming : :Referring: MARGE PEARL : + + Interpretation Summary 1) Normal left ventricular size wth moderately reduced systolic function (EF about 35%). There is considerable beat to beat varibility in EF assessment. 2) Normal right ventricular size with mildly reduced function. 3) No significant valvular abnormalities. 4) Atrial fibrillation with ventricular rates in the 87-127bpm range present during the study. 5) Hypertension present during the study (BP 130/95mmHg). 6) Compared to the Echo done 09/26/2019, no significant change except for HTN during the study today. Procedure: A two-dimensional transthoracic echocardiogram with color flow and Doppler was performed. The study quality was technically adequate. Comparison is made with the echocardiogram of 09/26/2019. The patient was in atrial fibrillation with heart rates between 87-127 bpm during the exam. Left Ventricle: The estimated left ventricular end diastolic volume is 97 ml. Left ventricular ejection fraction is estimated to be 35 +/- 5%. Left ventricular systolic function is moderately reduced. There is moderate global hypokinesis of the left ventricle. Diastolic function could not be accurately assessed due to atrial fibrillation. Right Ventricle: The right ventricle is grossly normal size. Right ventricular systolic function is mildly reduced. Atria: The left atrium is mildly dilated. The right atrium is normal in size. There is no Doppler evidence for an interatrial shunt. Mitral Valve: The mitral valve is normal in structure and function. There is mild mitral regurgitation. Aortic Valve: The aortic valve opens well. There is no aortic valve stenosis. No aortic regurgitation is present. Tricuspid Valve: The tricuspid valve is normal in structure and function. Pulmonary artery pressures cannot be estimated because of the lack of a measurable TR jet velocity but the IVC suggests a CVP of around 3 mmHg. There is mild tricuspid regurgitation. Pulmonic Valve: The pulmonic valve is not well visualized. There is no pulmonic valvular regurgitation. Great Vessels: The aortic root is normal size. The dimensions of the ascending aorta are normal. The IVC is of normal diameter and collapses greater than 50% with a sniff. This suggests a low right atrial pressure of 3 mm Hg. Pericardium/ Pleura There is no pericardial effusion. There is no pleural effusion. MMode/2D Measurements & Calculations LVIDd: 5.5 cm LVOT diam: 2.0 cm LVIDs: 4.6 cm Ao root diam: 3.3 cm FS: 16.8 % asc Aorta Diam: 3.1 cm EPSS: 1.5 cm IVSd: 0.96 cm LVPWd: 1.0 cm LV hargrove. diameter/BSA (cm/m^2): 2.4 LV sys. diameter/BSA (cm/m^2): 2.0 LA A2 area: 24.4 cm2 RA long axis: 5.4 cm LA A4 area: 24.9 cm2 RA area: 20.3 cm2 LA length (vol): 6.3 cm RA vol: 65.2 ml LA vol: 82.4 ml RA : 28.7 ml/m2 LA vol index: 36.2 ml/m2 IVC diam: 1.7 cm RVD1 (basal): 3.8 cm TAPSE: 1.6 cm Doppler Measurements & Calculations Ao V2 max: 102.0 cm/sec LVOT Max Zain: 79.0 cm/sec Ao V2 mean: 76.8 cm/sec LV V1 max P.5 mmHg Ao max P.2 mmHg LV V1 VTI: 12.2 cm Ao mean P.5 mmHg CAITLIN(I,D): 2.2 cm2 Ao V2 VTI: 17.7 cm CAITLIN(V,D): 2.5 cm2 sev ratio: 0.69 CAITLIN indexed to BSA (cm^2/m^2): 0.96 MV E max zain: 96.1 cm/sec PA V2 max: 48.8 cm/sec MV A max zain: 1.2 cm/sec PA V2 mean: 33.1 cm/sec MV E/A: 80.9 PA mean P.50 mmHg Med Peak E' Zain: 5.7 cm/sec PA pr(Accel): 15.6 mmHg E/E' med: 16.8 Lat Peak E' Zain: 5.0 cm/sec E/E' lat: 19.2 E/e' average: 18.0 MV dec time: 0.15 sec SV([facility]): 38.9 ml Reading Physician:04:31 PM
[2020-10-09 10:31] LABS: BUN Creatinine Ratio 18.2 (6-22); Blood Urea Nitrogen 16 mg/dL (9-20); Calcium 9.1 mg/dL (8.4-10.2); Carbon Dioxide 30 mmol/L (22-32); Chloride 103 mmol/L (98-107); Estimated Glomerular Filt Rate > 60.0 mL/min (>60); Glucose 120 mg/dL (80-110); HEMOLYSIS < 15 (0-50); Potassium 4.5 mmol/L (3.4-5.1); Sodium 138 mmol/L (137-145)
== END ==
PROVIDERS: Family Provider Internal Medicine Cardiovascular Disease; PCP Internal Medicine; Referring Provider Internal Medicine Cardiovascular Disease; Visit Provider Internal Medicine Cardiovascular Disease
DX: I08.1 Rheumatic disorders of both mitral and tricuspid valves (principal); I42.8 Other cardiomyopathies; I48.91 Unspecified atrial fibrillation; I10 Essential (primary) hypertension
CPT/HCPCS: 36415; 80048; 93306

== ENCOUNTER → 2021-01-03 09:37 | Outpatient (CLI) | payer MEDICARE, OTHER, SELFPAY ==
[2020-06-04 11:43] VITALS: BMI 31.1
[2021-01-03] MEDS: COVID-19 VACC, Ad26(JANSSEN)/PF 0.5 ML IM (09:43)
== END ==
PROVIDERS: Family Provider Internal Medicine Cardiovascular Disease; PCP Internal Medicine; Visit Provider Internal Medicine
DX: Z23 Encounter for immunization (principal)
CPT/HCPCS: 0031A; 91303

== ENCOUNTER → 2021-02-18 08:28 | Outpatient (CLI) | payer MEDICARE, OTHER, SELFPAY ==
[2020-06-04 11:43] VITALS: BMI 31.1
[2021-02-18 09:43] LABS: Add Manual Diff / Slide Review NO; Basophils Absolute Auto 100 /uL (0-100); Eosinophils Absolute Auto 100 /uL (0-450); Eosinophils Percent Auto 2.4 % (2-4); Hematocrit 43.3 % (41-53); Hemoglobin 14.5 g/dL (13.5-17.5); Lymphocytes Absolute Auto 1100 /uL (1100-4500); Lymphocytes Percent Auto 18.2 % (25-40); Mean Corpuscular HGB Conc 33.5 % (30-36); Mean Corpuscular Hemoglobin 32.5 PG (26-34); Mean Corpuscular Volume 96.9 fL (80-100); Monocytes Absolute Auto 400 /uL (0-900); Monocytes Percent Auto 7.2 % (3-14); Neutrophils Absolute Auto 4200 /uL (1500-7000); Neutrophils Percent Auto 71.2 % (50-75); Platelet Count 222 X10^3/uL (150-400); Red Blood Cell Count 4.47 X10^6/uL (4.5-5.9); Red Cell Distribution Width 13.9 % (11.6-14.8); White Blood Cell Count 5.9 X10^3/uL (4.5-11.0)
[2021-02-18 09:52] LABS: Hemoglobin A1C% w Est Avg Glu 5.3 % (4.0-6.0)
[2021-02-18 10:16] LABS: Alanine Aminotransferase 25 IU/L (<50); Albumin 3.9 g/dL (3.5-5.0); Albumin Globulin Ratio 1.3 (1.0-2.8); Alkaline Phosphatase 72 U/L (38-126); Aspartate Aminotransferase 25 IU/L (17-59); BUN Creatinine Ratio 25.6 (6-22); Bilirubin Total 0.6 mg/dL (0.2-1.3); Blood Urea Nitrogen 22 mg/dL (9-20); Calcium 9.2 mg/dL (8.4-10.2); Carbon Dioxide 29 mmol/L (22-32); Chloride 104 mmol/L (98-107); Cholesterol 178 mg/dL (140-199); Estimated Glomerular Filt Rate > 60.0 mL/min (>60); Glucose 121 mg/dL (80-110); HDL Cholesterol 54 mg/dL (40-60); HEMOLYSIS < 15 (0-50); LDL Cholesterol Calculated 113 mg/dL (<100); Magnesium 1.9 mg/dL (1.6-2.3); Potassium 4.9 mmol/L (3.4-5.1); Sodium 139 mmol/L (137-145); Total Protein 6.9 g/dL (6.3-8.2); Triglycerides 54 mg/dL (35-150)
== END ==
PROVIDERS: Family Provider Internal Medicine Cardiovascular Disease; PCP Physician Assistant; Referring Provider Physician Assistant; Visit Provider Physician Assistant
DX: I10 Essential (primary) hypertension (principal); R73.03 Prediabetes; I48.20 Chronic atrial fibrillation, unspecified; E78.00 Pure hypercholesterolemia, unspecified; N40.1 Benign prostatic hyperplasia with lower urinary tract symptoms
CPT/HCPCS: 36415; 80053; 80061; 83036; 83735; 85025

== ENCOUNTER → 2021-10-13 07:51 | Outpatient (CLI) | payer MEDICARE, OTHER, SELFPAY ==
[2020-06-04 11:43] VITALS: BMI 31.1
--- NOTE | 2021-10-13 | DI.ECHO.S_ITS ---
[place] [facility]---------+ [facility] +---------+ : : [address] : : : : [id number] : : : : Phone: [phone] +---------+ Echocardiogram Report + + :Name: DESMOND SARAVIA Study Date: 10/13/2021 Height: 73 in : :[facility] ReadingLocation: Weight: 223 lb : : Gender: Male BSA: 2.3 m2 : :: 1955 Age: 66 yrs BP: 146/115 mmHg: :Reason For Study: CARDIOMYOPATHY : :Ordering Physician: REBECCA, : :MARGE Performed By: Ingrid Fleming : :Referring: MARGE PEARL : + + Interpretation Summary 1) Normal left ventricular size wth severely reduced systolic function (EF 25- 30%). There is considerable beat to beat varibility in EF assessment. 2) Normal right ventricular size with low normal function. 3) No significant valvular abnormalities. 4) Atrial fibrillation with ventricular rates in the 80s-100sbpm range present during the study. 5) Hypertension present during the study (BP 146/115mmHg). 6) Compared to the Echo done 10/09/2020, LVEF has decreased from 35% to 25-30% on this study. Procedure: A two-dimensional transthoracic echocardiogram with color flow and Doppler was performed. The study quality was technically adequate. Comparison is made with the echocardiogram of 10/09/2020. The patient was in atrial fibrillation with heart rates between 78-124 bpm during the exam. Left Ventricle: The left ventricle is normal in size and wall thickness. The ejection fraction is estimated to be 25-30%. Left ventricular systolic function is severely reduced. There is severe global hypokinesis of the left ventricle. Diastolic function could not be accurately assessed due to atrial fibrillation. Right Ventricle: The right ventricle is normal size. Right ventricular systolic function is at the lower limits of normal. Atria: The left atrium is moderately dilated. Right atrial size is normal. There is no Doppler evidence for an interatrial shunt. Mitral Valve: The mitral valve is normal in structure and function. There is mild mitral regurgitation. Aortic Valve: The aortic valve is trileaflet. The aortic valve opens well. There is no aortic valve stenosis. There is mild aortic regurgitation. Tricuspid Valve: The tricuspid valve is normal in structure and function. There is trace tricuspid regurgitation. Pulmonary artery pressures cannot be estimated because of the lack of a measurable TR jet velocity. Pulmonic Valve: The pulmonic valve is not well visualized. There is no pulmonic valvular regurgitation. Great Vessels: The aortic root is normal size. The dimensions of the ascending aorta are normal. The IVC is of normal diameter and collapses greater than 50% with a sniff. This suggests a low right atrial pressure of 3 mm Hg. Pericardium/ Pleura There is no pericardial effusion. There is no pleural effusion. MMode/2D Measurements & Calculations LVIDd: 5.6 cm LVOT diam: 2.1 cm LVIDs: 5.0 cm Ao root diam: 3.3 cm FS: 10.9 % asc Aorta Diam: 3.2 cm EPSS: 1.9 cm IVSd: 0.70 cm LVPWd: 0.90 cm LV hargrove. diameter/BSA (cm/m^2): 2.5 LV sys. diameter/BSA (cm/m^2): 2.2 LA A2 area: 25.3 cm2 RA long axis: 5.2 cm LA A4 area: 26.0 cm2 RA area: 21.0 cm2 LA length (vol): 6.9 cm RA vol: 71.7 ml LA vol: 81.3 ml RA : 31.8 ml/m2 LA vol index: 36.1 ml/m2 IVC diam: 1.7 cm RVD1 (basal): 3.6 cm TAPSE: 1.8 cm Doppler Measurements & Calculations Ao V2 max: 140.9 cm/sec LVOT Max Zain: 86.9 cm/sec Ao V2 mean: 94.9 cm/sec LV V1 max P.0 mmHg Ao max P.0 mmHg LV V1 VTI: 16.5 cm Ao mean P.1 mmHg CAITLIN(I,D): 2.1 cm2 Ao V2 VTI: 28.1 cm CAITLIN(V,D): 2.2 cm2 sev ratio: 0.59 CAITLIN indexed to BSA (cm^2/m^2): 0.91 MV E max zain: 93.1 cm/sec PA V2 max: 66.0 cm/sec MV A max zain: 2.0 cm/sec PA V2 mean: 47.9 cm/sec MV E/A: 45.9 PA mean P.0 mmHg Med Peak E' Zain: 5.3 cm/sec PA pr(Accel): 20.8 mmHg E/E' med: 17.7 Lat Peak E' Zain: 8.5 cm/sec E/E' lat: 11.0 E/e' average: 14.3 MV dec time: 0.22 sec [facility] 57.7 ml Reading Physician:03:16 PM
[2021-10-13 09:42] LABS: Add Manual Diff / Slide Review NO; Basophils Absolute Auto 100 /uL (0-100); Basophils Percent Auto 0.8 % (0-2); Eosinophils Absolute Auto 100 /uL (0-450); Eosinophils Percent Auto 1.9 % (2-4); Hematocrit 47.4 % (41-53); Hemoglobin 15.9 g/dL (13.5-17.5); Lymphocytes Absolute Auto 1200 /uL (1100-4500); Lymphocytes Percent Auto 17.8 % (25-40); Mean Corpuscular HGB Conc 33.5 % (30-36); Mean Corpuscular Hemoglobin 32.1 PG (26-34); Monocytes Absolute Auto 600 /uL (0-900); Monocytes Percent Auto 8.8 % (3-14); Neutrophils Absolute Auto 4700 /uL (1500-7000); Neutrophils Percent Auto 70.7 % (50-75); Platelet Count 224 X10^3/uL (150-400); Red Blood Cell Count 4.94 X10^6/uL (4.5-5.9); Red Cell Distribution Width 13.9 % (11.6-14.8); White Blood Cell Count 6.7 X10^3/uL (4.5-11.0)
[2021-10-13 09:54] LABS: BUN Creatinine Ratio 16.8 (6-22); Blood Urea Nitrogen 18 mg/dL (9-20); Calcium 9.5 mg/dL (8.4-10.2); Carbon Dioxide 31 mmol/L (22-32); Chloride 103 mmol/L (98-107); Estimated Glomerular Filt Rate > 60.0 mL/min (>60); Glucose 120 mg/dL (80-110); HEMOLYSIS < 15 (0-50); Sodium 139 mmol/L (137-145)
== END ==
PROVIDERS: Family Provider Internal Medicine Cardiovascular Disease; PCP Physician Assistant; Referring Provider Internal Medicine Cardiovascular Disease; Visit Provider Internal Medicine Cardiovascular Disease
DX: I08.0 Rheumatic disorders of both mitral and aortic valves (principal); I10 Essential (primary) hypertension; I42.8 Other cardiomyopathies; Z79.01 Long term (current) use of anticoagulants
CPT/HCPCS: 36415; 80048; 85025; 93306

== ENCOUNTER → 2021-12-23 12:31 | Outpatient (CLI) | payer MEDICARE, OTHER, SELFPAY ==
[2020-06-04 11:43] VITALS: BMI 31.1
[2021-12-23 15:43] LABS: BUN Creatinine Ratio 25.5 (6-22); Blood Urea Nitrogen 24 mg/dL (9-20); Calcium 8.9 mg/dL (8.4-10.2); Carbon Dioxide 30 mmol/L (22-32); Chloride 105 mmol/L (98-107); Estimated Glomerular Filt Rate > 60.0 mL/min (>60); Glucose 192 mg/dL (80-110); HEMOLYSIS < 15 (0-50); Potassium 4.6 mmol/L (3.4-5.1); Sodium 137 mmol/L (137-145)
== END ==
PROVIDERS: Family Provider Internal Medicine Cardiovascular Disease; PCP Physician Assistant; Referring Provider Internal Medicine Cardiovascular Disease; Visit Provider Internal Medicine Cardiovascular Disease
DX: I42.8 Other cardiomyopathies (principal)
CPT/HCPCS: 36415; 80048

== ENCOUNTER → 2022-03-03 11:14 | Outpatient (CLI) | payer MEDICARE, OTHER, SELFPAY ==
[2020-06-04 11:43] VITALS: BMI 31.1
[2022-03-03 12:45] LABS: Add Manual Diff / Slide Review NO; Basophils Absolute Auto 100 /uL (0-100); Basophils Percent Auto 1.2 % (0-2); Eosinophils Absolute Auto 200 /uL (0-450); Hematocrit 42.8 % (41-53); Hemoglobin 14.3 g/dL (13.5-17.5); Lymphocytes Absolute Auto 1200 /uL (1100-4500); Lymphocytes Percent Auto 20.4 % (25-40); Mean Corpuscular HGB Conc 33.5 % (30-36); Mean Corpuscular Hemoglobin 33.2 PG (26-34); Mean Corpuscular Volume 99.3 fL (80-100); Monocytes Absolute Auto 500 /uL (0-900); Monocytes Percent Auto 8.2 % (3-14); Neutrophils Absolute Auto 4000 /uL (1500-7000); Neutrophils Percent Auto 67.2 % (50-75); Platelet Count 207 X10^3/uL (150-400); Red Blood Cell Count 4.32 X10^6/uL (4.5-5.9); Red Cell Distribution Width 14.1 % (11.6-14.8)
[2022-03-03 13:02] LABS: BUN Creatinine Ratio 21.5 (6-22); Blood Urea Nitrogen 26 mg/dL (9-20); Calcium 8.8 mg/dL (8.4-10.2); Carbon Dioxide 29 mmol/L (22-32); Chloride 104 mmol/L (98-107); Estimated Glomerular Filt Rate > 60 mL/min (>60); Glucose 111 mg/dL (80-110); HEMOLYSIS < 15 (0-50); Potassium 5.3 mmol/L (3.4-5.1); Sodium 138 mmol/L (137-145)
== END ==
PROVIDERS: Family Provider Internal Medicine Cardiovascular Disease; PCP Physician Assistant; Referring Provider Internal Medicine Cardiovascular Disease; Visit Provider Internal Medicine Cardiovascular Disease
DX: I10 Essential (primary) hypertension (principal)
CPT/HCPCS: 36415; 80048; 85025

== ENCOUNTER → 2022-03-10 13:36 | Outpatient (CLI) | payer MEDICARE, OTHER, SELFPAY ==
[2020-06-04 11:43] VITALS: BMI 31.1
--- NOTE | 2022-03-10 13:38 | DI.ECHO.S_ITS ---
[place] +---------+ [facility] +---------+ : : [address] : : [address] : [address] : : : : [id number] : : : : Phone: [phone] +---------+ Echocardiogram Report + + :Name: DESMOND SARAVIA Study Date: 03/10/2022 Height: 73 in : :[facility] ReadingLocation: Weight: 235 lb: : Gender: Male BSA: 2.3 m2 : :: 1955 Age: 66 yrs BP: 91/70 mmHg: :Reason For Study: SYSTOLIC HEART FAILURE : :Ordering Physician: REBECCA, : :MARGE Performed By: Ingrid Fleming : :Referring: MARGE PEARL : + + Interpretation Summary Limited Echo: 1) Normal left ventricular size with mildly to moderately reduced systolic function (EF 40-45%). 2) Compared to the Echo done 10/13/2021, LVEF has improved from 25-30% to 40- 45% on this study. Procedure: A two-dimensional transthoracic echocardiogram with color flow and Doppler was performed in limited views only to assess systolic heart failure.. The study quality was technically adequate. Comparison is made with the echocardiogram of 10/13/2021. The patient was in atrial fibrillation with heart rates between 80-129 bpm during the exam. Left Ventricle: The left ventricle is normal in size and wall thickness. The ejection fraction is estimated to be 40-45%. There is mild to moderate global hypokinesis of the left ventricle. Diastolic function could not be accurately assessed due to atrial fibrillation. Mitral Valve: The mitral valve is normal in structure and function. Tricuspid Valve: The tricuspid valve is not well visualized, but is grossly normal. There is trace tricuspid regurgitation. Pericardium/ Pleura There is no pericardial effusion. MMode/2D Measurements & Calculations LVIDd: 5.3 cm LA A4 area: 22.9 cm2 LVIDs: 4.1 cm LA length (vol): 6.0 cm FS: 23.7 % IVSd: 0.99 cm LVPWd: 0.95 cm LV hargrove. diameter/BSA (cm/m^2): 2.3 LV sys. diameter/BSA (cm/m^2): 1.8 RA long axis: 5.4 cm RA area: 20.5 cm2 RA vol: 65.8 ml RA : 28.6 ml/m2 IVC diam: 1.8 cm Doppler Measurements & Calculations MV E max zain: 94.0 cm/sec MV A max zain: 2.0 cm/sec MV E/A: 46.4 Med Peak E' Zain: 9.9 cm/sec E/E' med: 9.5 Lat Peak E' Zain: 9.8 cm/sec E/E' lat: 9.5 E/e' average: 9.5 MV dec time: 0.19 sec Reading Physician:03:23 PM
== END ==
PROVIDERS: Family Provider Internal Medicine Cardiovascular Disease; PCP Physician Assistant; Referring Provider Internal Medicine Cardiovascular Disease; Visit Provider Internal Medicine Cardiovascular Disease
DX: I50.22 Chronic systolic (congestive) heart failure (principal)
CPT/HCPCS: 93307

== ENCOUNTER → 2022-03-18 15:42 | Outpatient (CLI) | payer MEDICARE, OTHER, SELFPAY ==
[2020-06-04 11:43] VITALS: BMI 31.1
[2022-03-18 16:39] LABS: Add Manual Diff / Slide Review NO; Basophils Absolute Auto 100 /uL (0-100); Basophils Percent Auto 1.1 % (0-2); Eosinophils Absolute Auto 100 /uL (0-450); Eosinophils Percent Auto 2.6 % (2-4); Hematocrit 41.5 % (41-53); Hemoglobin 14.3 g/dL (13.5-17.5); Lymphocytes Absolute Auto 1200 /uL (1100-4500); Lymphocytes Percent Auto 21.1 % (25-40); Mean Corpuscular HGB Conc 34.4 % (30-36); Mean Corpuscular Hemoglobin 34.5 PG (26-34); Mean Corpuscular Volume 100.3 fL (80-100); Monocytes Absolute Auto 400 /uL (0-900); Monocytes Percent Auto 7.2 % (3-14); Neutrophils Absolute Auto 3800 /uL (1500-7000); Platelet Count 173 X10^3/uL (150-400); Red Blood Cell Count 4.14 X10^6/uL (4.5-5.9); Red Cell Distribution Width 14.2 % (11.6-14.8); White Blood Cell Count 5.6 X10^3/uL (4.5-11.0)
== END ==
PROVIDERS: Family Provider Internal Medicine Cardiovascular Disease; PCP Physician Assistant; Referring Provider Internal Medicine Cardiovascular Disease; Visit Provider Internal Medicine Cardiovascular Disease
DX: Z79.01 Long term (current) use of anticoagulants (principal)
CPT/HCPCS: 36415; 85025

== ENCOUNTER → 2022-09-09 07:02 | Outpatient (CLI) | payer MEDICARE, OTHER, SELFPAY ==
[2020-06-04 11:43] VITALS: BMI 31.1
[2022-09-09 08:04] LABS: Add Manual Diff / Slide Review NO; Basophils Absolute Auto 100 /uL (0-100); Eosinophils Absolute Auto 100 /uL (0-450); Eosinophils Percent Auto 2.3 % (2-4); Hematocrit 42.4 % (41-53); Hemoglobin 14.1 g/dL (13.5-17.5); Lymphocytes Absolute Auto 1200 /uL (1100-4500); Lymphocytes Percent Auto 22.3 % (25-40); Mean Corpuscular HGB Conc 33.3 % (30-36); Mean Corpuscular Hemoglobin 32.5 PG (26-34); Mean Corpuscular Volume 97.6 fL (80-100); Monocytes Absolute Auto 400 /uL (0-900); Monocytes Percent Auto 7.8 % (3-14); Neutrophils Absolute Auto 3600 /uL (1500-7000); Neutrophils Percent Auto 66.6 % (50-75); Platelet Count 304 X10^3/uL (150-400); Red Blood Cell Count 4.35 X10^6/uL (4.5-5.9); White Blood Cell Count 5.5 X10^3/uL (4.5-11.0)
[2022-09-09 08:24] LABS: BUN Creatinine Ratio 16.5 (6-22); Blood Urea Nitrogen 16 mg/dL (9-20); Carbon Dioxide 30 mmol/L (22-32); Chloride 103 mmol/L (98-107); Cholesterol 202 mg/dL (140-199); Estimated Glomerular Filt Rate > 60 mL/min (>60); Glucose 105 mg/dL (80-110); HDL Cholesterol 50 mg/dL (40-60); HEMOLYSIS < 15 (0-50); LDL Cholesterol Calculated 134 mg/dL (<100); Potassium 4.7 mmol/L (3.4-5.1); Sodium 140 mmol/L (137-145); Triglycerides 90 mg/dL (35-150)
== END ==
PROVIDERS: Family Provider Internal Medicine Cardiovascular Disease; PCP Physician Assistant; Referring Provider Internal Medicine Cardiovascular Disease; Visit Provider Internal Medicine Cardiovascular Disease
DX: I10 Essential (primary) hypertension (principal); I50.22 Chronic systolic (congestive) heart failure; Z79.01 Long term (current) use of anticoagulants
CPT/HCPCS: 36415; 80048; 80061; 85025

== ENCOUNTER → 2023-01-28 08:39 | Outpatient (CLI) | payer MEDICARE, OTHER, SELFPAY ==
[2020-06-04 11:43] VITALS: BMI 31.1
[2023-01-28 09:44] LABS: Add Manual Diff / Slide Review NO; Basophils Absolute Auto 100 /uL (0-100); Eosinophils Absolute Auto 200 /uL (0-450); Eosinophils Percent Auto 2.9 % (2-4); Hemoglobin 14.5 g/dL (13.5-17.5); Lymphocytes Absolute Auto 1500 /uL (1100-4500); Lymphocytes Percent Auto 24.3 % (25-40); Mean Corpuscular HGB Conc 33.6 % (30-36); Mean Corpuscular Hemoglobin 32.4 PG (26-34); Mean Corpuscular Volume 96.4 fL (80-100); Monocytes Absolute Auto 500 /uL (0-900); Monocytes Percent Auto 7.7 % (3-14); Neutrophils Absolute Auto 3800 /uL (1500-7000); Neutrophils Percent Auto 64.1 % (50-75); Platelet Count 202 X10^3/uL (150-400); Red Blood Cell Count 4.46 X10^6/uL (4.5-5.9); Red Cell Distribution Width 13.7 % (11.6-14.8)
[2023-01-28 10:26] LABS: BUN Creatinine Ratio 24.6 (6-22); Blood Urea Nitrogen 29 mg/dL (9-20); Calcium 8.8 mg/dL (8.4-10.2); Carbon Dioxide 26 mmol/L (22-32); Chloride 104 mmol/L (98-107); Estimated Glomerular Filt Rate > 60 mL/min (>60); Glucose 109 mg/dL (80-110); HEMOLYSIS < 15 (0-50); Potassium 4.9 mmol/L (3.4-5.1); Sodium 138 mmol/L (137-145)
== END ==
PROVIDERS: Family Provider Internal Medicine Cardiovascular Disease; PCP Physician Assistant; Referring Provider Internal Medicine Cardiovascular Disease; Visit Provider Internal Medicine Cardiovascular Disease
DX: I10 Essential (primary) hypertension (principal); Z79.01 Long term (current) use of anticoagulants
CPT/HCPCS: 36415; 80048; 85025

== ENCOUNTER → 2023-02-15 07:42 | Outpatient (CLI) | payer MEDICARE, OTHER, SELFPAY ==
[2020-06-04 11:43] VITALS: BMI 31.1
[2023-02-15 09:26] LABS: Alanine Aminotransferase 22 IU/L (<50); Albumin 3.9 g/dL (3.5-5.0); Albumin Globulin Ratio 1.4 (1.0-2.8); Alkaline Phosphatase 66 U/L (38-126); Aspartate Aminotransferase 20 IU/L (17-59); Bilirubin Total 0.8 mg/dL (0.2-1.3); Blood Urea Nitrogen 26 mg/dL (9-20); Calcium 8.9 mg/dL (8.4-10.2); Carbon Dioxide 27 mmol/L (22-32); Chloride 103 mmol/L (98-107); Cholesterol 203 mg/dL (140-199); Estimated Glomerular Filt Rate > 60 mL/min (>60); Globulin 2.7 g/dL (1.7-4.1); Glucose 116 mg/dL (80-110); HDL Cholesterol 58 mg/dL (40-60); HEMOLYSIS < 15 (0-50); LDL Cholesterol Calculated 130 mg/dL (<100); Potassium 5.1 mmol/L (3.4-5.1); Sodium 137 mmol/L (137-145); Total Protein 6.6 g/dL (6.3-8.2); Triglycerides 73 mg/dL (35-150)
[2023-02-15 09:33] LABS: Vitamin D 25 Hydroxy (D3) 29.2 ng/mL (30.0-100.0)
[2023-02-16 08:37] LABS: Labcorp Hemoglobin (Hb) A1c 6.1 % (4.8-5.6)
== END ==
PROVIDERS: Family Provider Internal Medicine Cardiovascular Disease; PCP Student in an Organized Health Care Education/Training Program; Referring Provider Student in an Organized Health Care Education/Training Program; Visit Provider Student in an Organized Health Care Education/Training Program
DX: E78.00 Pure hypercholesterolemia, unspecified (principal); Z13.21 Encounter for screening for nutritional disorder; R73.03 Prediabetes; I10 Essential (primary) hypertension
CPT/HCPCS: 36415; 80053; 80061; 82306; 83036

== ENCOUNTER → 2023-02-24 12:22 | Outpatient (CLI) | payer MEDICARE, OTHER, SELFPAY ==
[2020-06-04 11:43] VITALS: BMI 31.1
--- NOTE | 2023-02-24 12:25 | DI.ECHO.S_ITS ---
[place] +---------+ [facility] +---------+ : : [address] : [address] [place] : : : : [id number] : : : : Phone: [phone] : : [phone] +---------+ Echocardiogram Report + + :Name: DESMOND SARAVIA Study Date: 02/24/2023 Height: 72 in : :[facility] ReadingLocation: Weight: 235 lb: : Gender: Male BSA: 2.3 m2 : :: 1955 Age: 67 yrs BP: 85/67 mmHg: :Reason For Study: SYSTOLIC HEART FAILURE : :Ordering Physician: REBECCA, : :MARGE Performed By: Ingrid Fleming : :Referring: MARGE PEARL : + + Interpretation Summary Limited Echo: 1) Normal left ventricular size with mildly to moderately reduced systolic function (EF 40-45%). 2) Compared to the Echo done 03/10/2022, no significant change. Procedure: The study quality was technically adequate. Images were not obtained from all of the standard acoustic windows due to the limited scope of the study. A two-dimensional transthoracic echocardiogram with color flow and Doppler was performed in limited views only to assess Ejection fraction. The patient was in atrial fibrillation with heart rates between 73-90 bpm during the exam. Left Ventricle: The left ventricle is normal in size and wall thickness. The ejection fraction is estimated to be 40-45%. There is mild to moderate global hypokinesis of the left ventricle. Great Vessels: The IVC is of normal diameter and collapses greater than 50% with a sniff. This suggests a low right atrial pressure of 3 mm Hg. Pericardium/ Pleura There is no pericardial effusion. MMode/2D Measurements & Calculations LVIDd: 5.0 cm IVC diam: 1.7 cm LVIDs: 4.1 cm FS: 18.6 % EPSS: 1.0 cm IVSd: 0.92 cm LVPWd: 0.81 cm LV hargrove. diameter/BSA (cm/m^2): 2.2 LV sys. diameter/BSA (cm/m^2): 1.8 Reading Physician:02:27 PM
== END ==
PROVIDERS: Family Provider Internal Medicine Cardiovascular Disease; PCP Student in an Organized Health Care Education/Training Program; Referring Provider Internal Medicine Cardiovascular Disease; Visit Provider Internal Medicine Cardiovascular Disease
DX: I50.22 Chronic systolic (congestive) heart failure (principal); I42.8 Other cardiomyopathies
CPT/HCPCS: 93307

== ENCOUNTER → 2023-08-24 07:55 | Outpatient (CLI) | payer MEDICARE, OTHER, SELFPAY ==
[2020-06-04 11:43] VITALS: BMI 31.1
--- NOTE | 2023-08-24 | DI.ECHO.S_ITS ---
[facility] +---------+ [facility] +---------+ : : [address] : [place] : : : : [id number] : : : : Phone: [phone]+ Echocardiogram Report + + :Name: DESMOND SARAVIA Study Date: 08/24/2023 Height: 62 in : :[facility] ReadingLocation: Weight: 250 lb: : Gender: Male BSA: 2.1 m2 : :: 1955 Age: 68 yrs BP: 96/65 mmHg: :Reason For Study: SYSTOLIC HEART FAILURE : :Ordering Physician: REBECCA, : :MARGE Performed By: Ingrid Fleming : :Referring: MARGE PEARL : + + Interpretation Summary Limited Echo: 1) Normal left ventricular size with moderately reduced systolic function (EF about 35%). 2) Atrial fibrillation with ventricular rates between 95-129 bpm during the exam. 3) Compared to the Echo done 02/24/2023: LVEF has decreased from 40-45% to about 35% on this study. Procedure: Images were not obtained from all of the standard acoustic windows due to the limited scope of the study. The study quality was technically adequate. Comparison is made with the echocardiogram of 02/24/2023. The patient was in atrial fibrillation with heart rates between 95-129 bpm during the exam. Left Ventricle: The left ventricle is normal in size and wall thickness. Left ventricular ejection fraction is estimated to be 35 +/- 5%. There is moderate global hypokinesis of the left ventricle. Great Vessels: The IVC is of normal diameter and collapses greater than 50% with a sniff. This suggests a low right atrial pressure of 3 mm Hg. Pericardium/ Pleura There is no pericardial effusion. There is no pleural effusion. MMode/2D Measurements & Calculations LVIDd: 4.8 cm IVC diam: 1.8 cm LVIDs: 4.1 cm FS: 15.3 % EPSS: 0.71 cm IVSd: 0.74 cm LVPWd: 0.81 cm LV hargrove. diameter/BSA (cm/m^2): 2.3 LV sys. diameter/BSA (cm/m^2): 1.9 Reading Physician:11:41 AM
[2023-08-24 09:06] LABS: Add Manual Diff / Slide Review NO; Basophils Absolute Auto 200 /uL (0-100); Basophils Percent Auto 2.6 % (0-2); Eosinophils Absolute Auto 200 /uL (0-450); Eosinophils Percent Auto 3.2 % (2-4); Hematocrit 45.7 % (41-53); Hemoglobin 15.3 g/dL (13.5-17.5); Lymphocytes Absolute Auto 1200 /uL (1100-4500); Lymphocytes Percent Auto 19.7 % (25-40); Mean Corpuscular HGB Conc 33.6 % (30-36); Mean Corpuscular Hemoglobin 32.9 PG (26-34); Monocytes Absolute Auto 500 /uL (0-900); Neutrophils Absolute Auto 4200 /uL (1500-7000); Neutrophils Percent Auto 66.5 % (50-75); Platelet Count 229 X10^3/uL (150-400); Red Blood Cell Count 4.66 X10^6/uL (4.5-5.9); Red Cell Distribution Width 13.8 % (11.6-14.8); White Blood Cell Count 6.3 X10^3/uL (4.5-11.0)
[2023-08-24 09:26] LABS: BUN Creatinine Ratio 22.7 (6-22); Blood Urea Nitrogen 29 mg/dL (9-20); Calcium 9.3 mg/dL (8.4-10.2); Carbon Dioxide 26 mmol/L (22-32); Chloride 103 mmol/L (98-107); Cholesterol 222 mg/dL (140-199); Estimated Glomerular Filt Rate > 60 mL/min (>60); Glucose 105 mg/dL (80-110); HDL Cholesterol 61 mg/dL (40-60); HEMOLYSIS < 15 (0-50); LDL Cholesterol Calculated 143 mg/dL (<100); Potassium 5.2 mmol/L (3.4-5.1); Sodium 138 mmol/L (137-145); Triglycerides 92 mg/dL (35-150)
== END ==
PROVIDERS: Family Provider Internal Medicine Cardiovascular Disease; PCP Student in an Organized Health Care Education/Training Program; Referring Provider Internal Medicine Cardiovascular Disease; Visit Provider Internal Medicine Cardiovascular Disease
DX: I50.22 Chronic systolic (congestive) heart failure (principal); I42.8 Other cardiomyopathies; E78.5 Hyperlipidemia, unspecified; I10 Essential (primary) hypertension; Z79.01 Long term (current) use of anticoagulants
CPT/HCPCS: 36415; 80048; 80061; 85025; 93307

== ENCOUNTER → 2024-02-25 07:58 | Outpatient (CLI) | payer MEDICARE, OTHER, SELFPAY ==
[2020-06-04 11:43] VITALS: BMI 31.1
[2024-02-25 10:51] LABS: Add Manual Diff / Slide Review NO; Basophils Absolute Auto 100 /uL (0-100); Basophils Percent Auto 0.9 % (0-2); Eosinophils Absolute Auto 200 /uL (0-450); Eosinophils Percent Auto 2.8 % (2-4); Hematocrit 38.8 % (41-53); Hemoglobin 13.1 g/dL (13.5-17.5); Lymphocytes Absolute Auto 1100 /uL (1100-4500); Lymphocytes Percent Auto 20.1 % (25-40); Mean Corpuscular HGB Conc 33.7 % (30-36); Mean Corpuscular Hemoglobin 33.3 PG (26-34); Mean Corpuscular Volume 98.8 fL (80-100); Monocytes Absolute Auto 500 /uL (0-900); Monocytes Percent Auto 9.4 % (3-14); Neutrophils Absolute Auto 3600 /uL (1500-7000); Neutrophils Percent Auto 66.8 % (50-75); Platelet Count 193 X10^3/uL (150-400); Red Blood Cell Count 3.93 X10^6/uL (4.5-5.9); Red Cell Distribution Width 14.7 % (11.6-14.8); White Blood Cell Count 5.5 X10^3/uL (4.5-11.0)
[2024-02-25 11:07] LABS: Blood Urea Nitrogen 49 mg/dL (9-20); Calcium 8.7 mg/dL (8.4-10.2); Carbon Dioxide 27 mmol/L (22-32); Chloride 108 mmol/L (98-107); Cholesterol 162 mg/dL (140-199); Estimated Glomerular Filt Rate 43 mL/min (>60); Glucose 82 mg/dL (80-110); HDL Cholesterol 48 mg/dL (40-60); HEMOLYSIS < 15 (0-50); LDL Cholesterol Calculated 81 mg/dL (<100); Potassium 5.1 mmol/L (3.4-5.1); Sodium 139 mmol/L (137-145); Triglycerides 163 mg/dL (35-150)
== END ==
PROVIDERS: Family Provider Internal Medicine Cardiovascular Disease; PCP Internal Medicine; Referring Provider Internal Medicine Cardiovascular Disease; Visit Provider Internal Medicine Cardiovascular Disease
DX: I10 Essential (primary) hypertension (principal); R73.03 Prediabetes; E78.5 Hyperlipidemia, unspecified; Z79.01 Long term (current) use of anticoagulants
CPT/HCPCS: 36415; 80048; 80061; 83036; 85025

== ENCOUNTER → 2024-03-28 07:49 | Outpatient (CLI) | payer MEDICARE, OTHER, SELFPAY ==
[2020-06-04 11:43] VITALS: BMI 31.1
--- NOTE | 2024-03-28 | DI.ECHO.S_ITS ---
[place] +---------+ Hospital : : [address] : : [place] : : [id number] : : Phone: [phone] Echocardiogram Report + + :Name: DESMOND SARAVIA Study Date: 03/28/2024 Height: 72 in : :[facility] ReadingLocation: Weight: 230 lb : : Gender: Male BSA: 2.3 m2 : :: 1955 Age: 68 yrs BP: 102/73 mmHg: :Reason For Study: NONISCHMEIC CARDIOMYOPATHY : :Ordering Physician: REBECCA, : :MARGE Performed By: Ingrid Fleming : :Referring: MARGE PEARL : + + Interpretation Summary Limited echo: 1) 1) Normal left ventricular thickness and size with moderately reduced systolic functoin (EF 35-40%). 2) Mildly enlarged right ventricle with mildly reduced function. 3) Compared to the Echo done 08/24/2023, LVEF has increased from about 35% to 35-40% on this study. Procedure: Images were not obtained from all of the standard acoustic windows due to the limited scope of the study. The study quality was technically adequate. Comparison is made with the echocardiogram of 08/24/2023. The patient was in atrial fibrillation with heart rates between 90-128 bpm during the exam. Left Ventricle: The left ventricle is normal in size and wall thickness. The ejection fraction is estimated to be 35-40%. There is moderate global hypokinesis of the left ventricle. Right Ventricle: The right ventricle is mildly dilated. Right ventricular systolic function is mildly reduced. Great Vessels: The IVC is of normal diameter and collapses greater than 50% with a sniff. This suggests a low right atrial pressure of 3 mm Hg. Pericardium/ Pleura There is no pericardial effusion. There is no pleural effusion. MMode/2D Measurements & Calculations LVIDd: 5.4 cm IVC diam: 1.9 cm LVIDs: 4.3 cm FS: 19.6 % IVSd: 0.82 cm LVPWd: 0.96 cm LV hargrove. diameter/BSA (cm/m^2): 2.4 LV sys. diameter/BSA (cm/m^2): 1.9 Reading Physician:10:55 AM
[2024-03-28 09:47] LABS: BUN Creatinine Ratio 24.8 (6-22); Blood Urea Nitrogen 27 mg/dL (9-20); Calcium 8.9 mg/dL (8.4-10.2); Carbon Dioxide 29 mmol/L (22-32); Chloride 108 mmol/L (98-107); Estimated Glomerular Filt Rate > 60 mL/min (>60); Glucose 114 mg/dL (80-110); HEMOLYSIS < 15 (0-50); Potassium 5.2 mmol/L (3.4-5.1); Sodium 140 mmol/L (137-145)
== END ==
PROVIDERS: Family Provider Internal Medicine Cardiovascular Disease; PCP Internal Medicine; Referring Provider Internal Medicine Cardiovascular Disease; Visit Provider Internal Medicine Cardiovascular Disease
DX: I42.8 Other cardiomyopathies (principal); I10 Essential (primary) hypertension
CPT/HCPCS: 36415; 80048; 93307

== ENCOUNTER → 2024-10-05 08:11 | Outpatient (CLI) | payer MEDICARE, OTHER, SELFPAY ==
[2020-06-04 11:43] VITALS: BMI 31.1
[2024-10-05 09:09] LABS: Hemoglobin 15.3 g/dL (13.5-17.5); Mean Corpuscular HGB Conc 33.2 % (30-36); Mean Corpuscular Hemoglobin 32.9 PG (26-34); Platelet Count 217 X10^3/uL (150-400); Red Blood Cell Count 4.65 X10^6/uL (4.5-5.9); Red Cell Distribution Width 13.4 % (11.6-14.8); White Blood Cell Count 6.3 X10^3/uL (4.5-11.0)
[2024-10-05 09:31] LABS: BUN Creatinine Ratio 20.7 (6-22); Blood Urea Nitrogen 23 mg/dL (9-20); Carbon Dioxide 28 mmol/L (22-32); Chloride 105 mmol/L (98-107); Cholesterol 147 mg/dL (140-199); Estimated Glomerular Filt Rate > 60 mL/min (>60); Glucose 94 mg/dL (80-110); HDL Cholesterol 53 mg/dL (40-60); HEMOLYSIS < 15 (0-50); LDL Cholesterol Calculated 79 mg/dL (<100); Potassium 4.7 mmol/L (3.4-5.1); Sodium 136 mmol/L (137-145); Triglycerides 76 mg/dL (35-150)
[2024-10-05 09:41] LABS: NT-proBNP (BNP-Adult 18+) 1010 pg/mL (<125)
== END ==
PROVIDERS: Family Provider Internal Medicine Cardiovascular Disease; PCP Internal Medicine; Referring Provider Internal Medicine Cardiovascular Disease; Visit Provider Internal Medicine Cardiovascular Disease
DX: I10 Essential (primary) hypertension (principal); Z79.01 Long term (current) use of anticoagulants; I42.8 Other cardiomyopathies; I48.19 Other persistent atrial fibrillation
CPT/HCPCS: 36415; 80048; 80061; 83880; 84443; 85027

== ENCOUNTER → 2025-02-06 08:40 | Outpatient (CLI) | payer MEDICARE, OTHER, SELFPAY ==
[2020-06-04 11:43] VITALS: BMI 31.1
[2025-02-06 09:28] LABS: Hematocrit 45.5 % (41-53); Hemoglobin 15.4 g/dL (13.5-17.5); Mean Corpuscular HGB Conc 33.8 % (30-36); Mean Corpuscular Hemoglobin 33.5 PG (26-34); Mean Corpuscular Volume 99.1 fL (80-100); Platelet Count 207 X10^3/uL (150-400); Red Blood Cell Count 4.59 X10^6/uL (4.5-5.9); Red Cell Distribution Width 14.1 % (11.6-14.8); White Blood Cell Count 7.6 X10^3/uL (4.5-11.0)
[2025-02-06 10:07] LABS: BUN Creatinine Ratio 16.7 (6-22); Blood Urea Nitrogen 18 mg/dL (9-20); Calcium 9.5 mg/dL (8.4-10.2); Carbon Dioxide 28 mmol/L (22-32); Chloride 104 mmol/L (98-107); Estimated Glomerular Filt Rate > 60 mL/min (>60); Glucose 100 mg/dL (80-110); HEMOLYSIS < 15 (0-50); Potassium 5.2 mmol/L (3.4-5.1); Sodium 139 mmol/L (137-145)
[2025-02-06 10:12] LABS: NT-proBNP (BNP-Adult 18+) 1080 pg/mL (<125)
== END ==
PROVIDERS: Family Provider Internal Medicine Cardiovascular Disease; PCP Internal Medicine; Referring Provider Internal Medicine Cardiovascular Disease; Visit Provider Internal Medicine Cardiovascular Disease
DX: I42.8 Other cardiomyopathies (principal)
CPT/HCPCS: 36415; 80048; 83880; 85027

== ENCOUNTER → 2025-02-07 10:00 | Outpatient (CLI) | payer MEDICARE, OTHER, SELFPAY ==
[2020-06-04 11:43] VITALS: BMI 31.1
--- NOTE | 2025-02-07 10:01 | DI.RAD.S_ITS ---
PROCEDURE: XR FOOT LT MIN 3V INDICATIONS: foreign body, left foot TECHNIQUE: 3 views of the foot were acquired. COMPARISON: None. FINDINGS: Bones: Mild spurring of the anterior tibial plafond and the adjacent anterior talar neck predisposes to anterior impingement ankle dorsiflexion. Small remote avulsion fracture of the medial malleolar tip noted Joints: Moderate degeneration of the 2nd 3rd 4th DIP and fusion of 5th DIP . There is also mild degenerative change in the remaining interphalangeal joints . Soft tissues: No soft tissue abnormality. IMPRESSION: Chronic findings -as described. No radiopaque foreign body identified. Some foreign bodies are occult on x-ray and may be identified with ultrasound Dictated by: Moe Ramirez M.D. on 02/08/2025 at 11:11 Approved by: Moe Ramirez M.D. on 02/08/2025 at 11:13
== END ==
PROVIDERS: Family Provider Internal Medicine Cardiovascular Disease; PCP Internal Medicine; Referring Provider Surgery; Visit Provider Surgery
DX: S90.852A Superficial foreign body, left foot, initial encounter (principal); M19.072 Primary osteoarthritis, left ankle and foot; X58.XXXA Exposure to other specified factors, initial encounter
CPT/HCPCS: 73630

== ENCOUNTER → 2025-02-19 07:15 | Outpatient (CLI) | payer MEDICARE, OTHER, SELFPAY ==
[2020-06-04 11:43] VITALS: BMI 31.1
--- NOTE | 2025-02-19 07:17 | DI.US.S_ITS ---
PROCEDURE: US EXTREMITY NONVASC LOWER LT INDICATIONS: Foreign body in lt food TECHNIQUE: Real-time scanning was performed of the left foot , with image documentation. COMPARISON: None. FINDINGS AND IMPRESSION: Linear echogenic foreign bodies are seen corresponding to the area of clinical concern measuring 1.6 x 1.8 mm (just under the skin) and 1.6 mm (deeper in the subcutaneous tissues, 5 mm deep to the skin). Dictated by: Karl Ro M.D. on 02/19/2025 at 12:47 Approved by: Karl Ro M.D. on 02/19/2025 at 12:49
== END ==
LOC: US 07:16
PROVIDERS: Family Provider Internal Medicine Cardiovascular Disease; PCP Internal Medicine; Referring Provider Physician Assistant; Visit Provider Physician Assistant
DX: S90.852A Superficial foreign body, left foot, initial encounter (principal); X58.XXXA Exposure to other specified factors, initial encounter
CPT/HCPCS: 76882

== ENCOUNTER → 2025-03-16 09:05 | Outpatient (CLI) | payer MEDICARE, OTHER, SELFPAY ==
[2020-06-04 11:43] VITALS: BMI 31.1
--- NOTE | 2025-03-16 09:07 | DI.CT.S_ITS ---
PROCEDURE: CT FOOT LEFT WITHOUT CON INDICATIONS: FOREIGN BODY IN LEFT FOOT TECHNIQUE: Noncontrast 1-1.5 mm axial sections acquired from above the tibiotalar joint to the bottom of the calcaneus, with coronal and sagittal reformats. COMPARISON: [facility], CR, XR FOOT LT MIN 3V, 02/07/2025, 10:03. [facility], US, US EXTREMITY NONVASC LOWER LT, 02/19/2025, 7:51. [facility], CR, XR FOOT 3 VIEWS WEIGHT BEARING LEFT, 03/09/2025, 8:59. FINDINGS: Image quality: Excellent. Bones: [id number] osteoarthritic changes are noted throughout left foot with joint space narrowing, subchondral sclerosis and small marginal osteophyte formation more notably involving tibiotalar joint and subtalar joint. No fracture or dislocation. No suspicious intraosseous lesion. Soft tissues: Examination of left foot soft tissue shows very faint linear hyperdensity in plantar soft tissue projecting at the level of mid to distal 4th metatarsal shaft best seen on series 3, image 135 . This corresponds well with the recent ultrasound finding. No other radiopaque foreign body is seen. No discrete drainable fluid collection or soft tissue mass. Extensor and flexor tendons are grossly intact. IMPRESSION: 1. Linear foreign body in plantar soft tissue at the level of 4th mid to distal metatarsal shaft as described above. No soft tissue mass. No other radiopaque foreign body is seen. No drainable fluid collection. 2. [id number] left foot osteoarthritis. No acute fracture or dislocation. No suspicious bony lesions. Dictated by: Bijan Craig M.D. on 03/18/2025 at 0:02 Approved by: Bijan Craig M.D. on 03/18/2025 at 0:23
== END ==
PROVIDERS: Family Provider Internal Medicine Cardiovascular Disease; PCP Family Medicine; Referring Provider Orthopaedic Surgery Foot and Ankle Surgery; Visit Provider Orthopaedic Surgery Foot and Ankle Surgery
DX: S90.852A Superficial foreign body, left foot, initial encounter (principal); M19.072 Primary osteoarthritis, left ankle and foot; X58.XXXA Exposure to other specified factors, initial encounter
CPT/HCPCS: 73700

== ENCOUNTER → 2025-08-28 08:08 | Outpatient (CLI) | payer MEDICARE, OTHER, SELFPAY ==
[2020-06-04 11:43] VITALS: BMI 31.1
--- NOTE | 2025-08-28 08:12 | DI.ECHO.S_ITS ---
[place] +---------+ Hospital : : [address] : : [place] : : [id number] : : Phone: [phone] Echocardiogram Report + + :Name: DESMOND SARAVIA Study Date: 08/28/2025 Height: 62 in : :[facility] ReadingLocation: Weight: 225 lb : : Gender: Male BSA: 2.0 m2 : :: 1955 Age: 70 yrs BP: 114/90 mmHg: :Reason For Study: NICM : :Ordering Physician: REBECCA, : :MARGE Performed By: Jabier Mendez : :Referring: MARGE PEARL : + + Interpretation Summary 1) Normal left ventricular size with mildly reduced systolic function (EF 45- 50%). 2) Normal right ventricular size and function. 3) No significant valvular abnormalities. 4) Compared to the Echo done 03/28/2024, LVEF has improved from 35-40% to 45-50% on this study. Procedure: A two-dimensional transthoracic echocardiogram with color flow and Doppler was performed. The study quality was technically adequate. Comparison is made with the echocardiogram of 03/28/2024. The heart rate ranged between 80-110 bpm during the study. Left Ventricle: The left ventricle is normal in size. Left ventricular wall thickness is borderline increased. The ejection fraction is estimated to be 45-50%. Beat to beat variability in left ventricular contraction noted with arrhythmia. Diastolic function is indeterminate. Right Ventricle: The right ventricle is normal in size and function. Atria: The left atrium is mildly dilated. The right atrium is normal in size. There is no Doppler evidence for an interatrial shunt. Mitral Valve: The mitral valve leaflets appear to open well. There is no mitral valve stenosis. There is trace mitral regurgitation. Aortic Valve: The aortic valve is trileaflet. The aortic valve opens well. There is no aortic valve stenosis. No aortic regurgitation is present. Tricuspid Valve: The tricuspid valve is not well visualized, but is grossly normal. There is trace tricuspid regurgitation. Pulmonary artery pressures cannot be estimated because of the lack of a measurable TR jet velocity but the IVC suggests a CVP of around 3 mmHg. Pulmonic Valve: The pulmonic valve is not well seen, but is grossly normal. There is trace pulmonic regurgitation. Great Vessels: The aortic root is normal size. The ascending aorta is normal in size. The aortic arch could not be visualized. The pulmonary artery is not well visualized, but is probably normal size. The IVC is of normal diameter and collapses greater than 50% with a sniff. This suggests a low right atrial pressure of 3 mm Hg. Pericardium/ Pleura There is no pericardial effusion. MMode/2D Measurements & Calculations LVIDd: 4.6 cm LVOT diam: 2.0 cm LVIDs: 3.4 cm Ao root diam: 3.3 cm FS: 25.8 % asc Aorta Diam: 2.9 cm IVSd: 1.1 cm LVPWd: 1.1 cm LV hargrove. diameter/BSA (cm/m^2): 2.3 LV sys. diameter/BSA (cm/m^2): 1.7 LA A2 area: 20.9 cm2 RA long axis: 5.4 cm LA A4 area: 23.4 cm2 RA area: 13.8 cm2 LA length (vol): 6.8 cm RA vol: 29.8 ml LA vol: 61.4 ml RA : 14.8 ml/m2 LA vol index: 30.6 ml/m2 IVC diam: 1.7 cm RVD1 (basal): 2.9 cm RVD2 (mid): 2.9 cm TAPSE: 2.1 cm Doppler Measurements & Calculations Ao V2 max: 116.3 cm/sec LVOT Max Zain: 79.9 cm/sec Ao V2 mean: 82.1 cm/sec LV V1 max P.6 mmHg Ao max P.4 mmHg LV V1 VTI: 13.1 cm Ao mean P.0 mmHg CAITLIN(I,D): 2.1 cm2 Ao V2 VTI: 19.5 cm CAITLIN(V,D): 2.1 cm2 sev ratio: 0.67 CAITLIN indexed to BSA (cm^2/m^2): 1.0 MV E max zain: 85.8 cm/sec PA V2 max: 91.3 cm/sec Med Peak E' Zain: 8.1 cm/sec PA V2 mean: 66.6 cm/sec E/E' med: 10.7 PA mean P.9 mmHg Lat Peak E' Zain: 10.3 cm/sec PA pr(Accel): 44.3 mmHg E/E' lat: 8.4 E/e' average: 9.5 MV dec time: 0.15 sec SV(LVOT): 41.0 ml Reading Physician:12:11 PM
[2025-08-28 09:04] LABS: Hematocrit 42.1 % (41-53); Hemoglobin 14.5 g/dL (13.5-17.5); Mean Corpuscular HGB Conc 34.4 % (30-36); Mean Corpuscular Hemoglobin 33.3 PG (26-34); Mean Corpuscular Volume 96.8 fL (80-100); Platelet Count 198 X10^3/uL (150-400)
[2025-08-28 09:49] LABS: Blood Urea Nitrogen 19 mg/dL (9-20); Calcium 9.0 mg/dL (8.4-10.2); Carbon Dioxide 29 mmol/L (22-32); Chloride 102 mmol/L (98-107); Estimated Glomerular Filt Rate > 60 mL/min (>60); Glucose 115 mg/dL (70-99); HEMOLYSIS < 15 (0-50); Potassium 5.0 mmol/L (3.4-5.1); Sodium 136 mmol/L (137-145)
[2025-08-28 09:53] LABS: NT-proBNP (BNP-Adult 18+) 1540 pg/mL (<125)
== END ==
LOC: ECHO 08:09
PROVIDERS: Family Provider Internal Medicine Cardiovascular Disease; PCP Family Medicine; Referring Provider Internal Medicine Cardiovascular Disease; Visit Provider Internal Medicine Cardiovascular Disease
DX: I42.8 Other cardiomyopathies (principal)
CPT/HCPCS: 36415; 80048; 83880; 85027; 93306